=== PATIENT | female | born 1950 | race Caucasian/White ===

== ENCOUNTER 2021-12-30 02:45 | Observation (INO) ==
[2021-12-30] MEDS ORDERED: SODIUM CHLORIDE 0.9% 1000ML 1,000 ML IV ONE (03:05)
[2021-12-30] MEDS ORDERED: fentaNYL citrate 100 MCG/2 ML VIAL IV STA (03:15)
[2021-12-30] MEDS ORDERED: ACETAMINOPHEN 1,000 MG/100 ML VIAL IV STA (03:15)
[2021-12-30 03:45] LABS: INR 1.1 (0.9-1.1); Prothrombin Time 11.4 Seconds (9.0-12.0)
[2021-12-30 03:46] LABS: Basophils # (auto) 0.04 K/uL (0-0.2); Basophils % (auto) 0.3 %; Eosinophils # (auto) 0.22 K/uL (0-0.5); Eosinophils % (auto) 1.7 %; Hematocrit (blood only) 29.4 % (37-47); Immature Granulocytes # (auto) 0.21 K/uL (0.00-0.02); Immature Granulocytes % (auto) 1.6 %; Lymphocytes # (auto) 4.19 K/uL (1.2-3.4); Lymphocytes % (auto) 32.1 %; Mean Corpuscular Hemoglobin 30.1 pg (25-34); Mean Corpuscular Volume 88.6 fL (80-100); Mean Platelet Volume 8.8 fL (7.4-10.4); Monocytes # (auto) 1.28 K/uL (0.11-0.59); Monocytes % (auto) 9.8 %; Neutrophils # (auto) 7.13 K/uL (1.4-6.5); Neutrophils % (auto) 54.5 %; Nucleated RBC # (auto) 0.07 K/uL (0-0); Nucleated RBC % (auto) 0.5 %; Platelet Count 637 K/uL (130-400); RDW Coefficient of Variation 14.2 % (11.5-14.5); RDW Standard Deviation 46.2 fL (36.4-46.3); Red Blood Count 3.32 M/uL (4.2-5.4); White Blood Count 13.07 K/uL (4.8-10.8)
[2021-12-30 03:55] LABS: Troponin I High Sensitivity 9.1 pg/ml (0-14)
[2021-12-30 03:58] LABS: Alanine Aminotransferase 11 U/L (7-52); Albumin Globulin Ratio 0.8 (0.9-2); Albumin Level 3.1 gm/dl (3.4-5.0); Alkaline Phosphatase 123 U/L (34-104); Anion Gap 9 (3-11); Aspartate Aminotransferase 15 U/L (13-39); BUN Creatinine Ratio 16.4 (10-20); Bilirubin,Total 0.2 mg/dl (0.2-1.0); Blood Urea Nitrogen 18 mg/dl (6-23); Calcium 9.1 mg/dl (8.5-10.1); Carbon Dioxide 18 mmol/L (21-32); Chloride 108 mmol/L (98-107); Est GFR (African American) 58.9 ml/min; Est GFR (Non-African American) 50.8 ml/min; Globulin 4.1 gm/dl (2.5-4.0); Glucose 204 mg/dl (70-99(Fasting)); Magnesium 1.3 mg/dl (1.7-2.4); Sodium 135 mmol/L (136-145); Total Protein 7.2 gm/dl (6.0-8.3)
[2021-12-30] MEDS ORDERED: VANCOMYCIN HCL 1,500 MG in SODIUM CHLORIDE 0.9% 500 ML IV ONE (04:04)
[2021-12-30] MEDS ORDERED: VANCOMYCIN CONSULT ACTIVE PRN (04:04)
--- NOTE | 2021-12-30 04:40 | Emergency Department Note ---
History of Present Illness General Chief complaint: Wound Stated complaint: s/p Excision of buttock lesion-painful w/ drainage Time Seen by Provider: 12/30/21 02:48 Source: patient and EMS Mode of arrival: EMS Limitations: altered mental status History of Present Illness Provider complaint: Wound left buttock Maximum Pain Intensity: 5 Treatments prior to arrival: none This is a 71-year-old female presents emerge department via EMS due to "feeling ill" as well as a recent excision of a lesion on her left buttock now with increased pain and drainage. EMS states patient has been a poor historian, does live alone. She was supposed to be taking antibiotics since her incision however has not. Patient states her niece never picked them up for her. She states she has not had an appetite and felt increasingly weak. She denies fevers or chills. She states she does have pain in the area of the incision and throughout her left buttock. She denies change in urine or stools. Patient states she has not changed the dressing to that area since it was done on Fri. Patient cannot recall her past medical history or her medications. She did know that she was a diabetic. Pt seen during a time of high acuity and national emergency pandemic while wearing PPE. Home Medications Medication Instructions Recorded Confirmed Type amitriptyline 50 mg tablet 50 mg PO HS 12/30/21 12/30/21 History aspirin 81 mg tablet,delayed 81 mg PO DAILY 12/30/21 12/30/21 History release atorvastatin 40 mg tablet 40 mg PO HS 12/30/21 12/30/21 History cholestyramine (with sugar) 4 gram 4 g PO BID 12/30/21 12/30/21 History oral powder clindamycin HCl 300 mg capsule 300 mg PO Q6H 12/30/21 12/30/21 History dapagliflozin 10 mg tablet 10 mg PO DAILY 12/30/21 12/30/21 History (Farxiga) hydralazine 25 mg tablet 25 mg PO TID 12/30/21 12/30/21 History insulin aspart U-100 100 unit/mL 11 unit SUBCUT TIDM 12/30/21 12/30/21 History subcutaneous solution ketoconazole 2 % topical cream 1 applic TOPICAL BID 12/30/21 12/30/21 History memantine 5 mg tablet 5 mg PO QAM 12/30/21 12/30/21 History nystatin 100,000 unit/gram topical 1 applic TOPICAL BID PRN 12/30/21 12/30/21 History powder omeprazole 20 mg capsule,delayed 20 mg PO DAILY 12/30/21 12/30/21 History release Allergies Allergy/AdvReac Type Severity Reaction Status Date / Time amlodipine Allergy Severe SHORT OF Verified 12/30/21 03:06 BREATH adhesive Allergy Intermediate ITCHY RASH Verified 12/30/21 03:06 buspirone [From BuSpar] Allergy Unknown CAN'T Verified 12/30/21 03:06 REMEMBER duloxetine [From Cymbalta] Allergy Unknown CAN'T Verified 12/30/21 03:06 REMEMBER Penicillins AdvReac Intermediate Vomiting Verified 12/30/21 03:06 Past Med/Surg History Medical History (Updated 01/01/22 @ 23:42 by Akosua White DO) Depression Diabetes GERD (gastroesophageal reflux disease) Hypertension Hypothyroidism Memory deficit Surgical History History of hysterectomy Social History Smoking Status: Current every day smoker Cigarettes Per Day: 20; Hx Alcohol Use: No Hx Substance Use: No Preferred Language: Italian Communication Ability: Effective 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 Beliefs That Will Affect Care: None marital status: Current Living Situation: Alone Other Information That Helps Us Care for You: No Feels Safe at Home: Yes Assistive Devices: Walker Review of Systems A total of 10 systems reviewed and were otherwise negative All systems reviewed & are unremarkable except as noted in HPI & below Physical Exam Vital Signs Vital Signs - 24 hr 12/30/21 02:53 12/30/21 03:05 12/30/21 03:42 Temperature 36.5 C Temperature Source Oral Pulse Rate 74 74 Pulse Rate [Left Finger] 68 Respiratory Rate 20 20 20 Respiratory Effort / Characteristics Non-Labored Spontaneous Non-Labored Spontaneous Non-Labored Spontaneous Respiratory Depth Normal Normal Blood Pressure 178/102 H Blood Pressure [Left Arm] 178/82 H Blood Pressure Mean 127 Blood Pressure Mean [Left Arm] 114 Blood Pressure Position [Left Arm] Pulse Oximetry 98 99 99 Oxygen Delivery Method Room Air Room Air Room Air Sepsis Recent Fever Within 48 Hours No Sepsis New/Unexplained Change in Mental Status No Sepsis Action Taken by Nursing No Action Required 12/30/21 05:01 12/30/21 05:12 12/30/21 05:48 Temperature Temperature Source Pulse Rate Pulse Rate [Left Finger] 86 73 Respiratory Rate 20 20 20 Respiratory Effort / Characteristics Non-Labored Spontaneous Non-Labored Spontaneous Respiratory Depth Normal Normal Blood Pressure Blood Pressure [Left Arm] 178/82 H 175/82 H Blood Pressure Mean Blood Pressure Mean [Left Arm] 114 113 Blood Pressure Position [Left Arm] Lying Pulse Oximetry 98 98 98 Oxygen Delivery Method Room Air Room Air Room Air Sepsis Recent Fever Within 48 Hours Sepsis New/Unexplained Change in Mental Status Sepsis Action Taken by Nursing GENERAL: alert, unwell appearing, well nourished, no distress, non-toxic, laying right lateral recumbent EYE EXAM: normal conjunctiva, PERRL and EOM's grossly intact OROPHARYNX: no exudate, no erythema, lips, buccal mucosa, and tongue normal and mucous membranes are moist NECK: supple, no nuchal rigidity, no adenopathy, non-tender LUNGS: Clear to auscultation. Normal chest wall mechanics, no w/r/r HEART: no murmurs, S1 normal and S2 normal ABDOMEN: abdomen soft, non-tender, normo-active bowel sounds, no masses, no rebound or guarding. BUTTOCK: Small incision noted to the inferolateral aspect of the left buttock with copious drainage noted from the wound as well as on the dressing that was still in place, no surrounding erythema, tenderness with any palpation, culture obtained, no apparent extension into the perineum BACK: Back is symmetrical on inspection and there is no deformity, no midline tenderness, no CVA tenderness. SKIN: no rashes and no bruising UPPER EXTREMITIES: upper extremities are grossly normal. FROM, nml pulses b/l. LOWER EXTREMITIES: No pitting edema. FROM, nml pulses b/l. NEURO EXAM: Normal sensorium however difficulty remembering details of recent events, cranial nerves II-XII grossly intact, normal speech, no gross weakness of arms, no gross weakness of legs. Gross sensation intact. Course Course 0711: Lengthy discussion with the patient's niece, Jyoti, who lives in the same apartment complex with her in [place]. She confirms patient does have a history of dementia but does live alone. She states she was admitted to [facility] for the procedure to remove an abscess on her buttock. She states she was discharged on . She states since that time she has become increasingly confused. She states because none of them have a car they were unable to go pickling grader a prescription for clindamycin she was supposed to be taking at discharge. She states to her knowledge patient would want to be a full code. He does not know of any other advanced directives. Her number is [phone]. Administered Medications Acetaminophen (Acetaminophen 325 Mg Tab) 650 mg PO Q4H PRN PRN Reason: pain/fever Stop: 01/29/22 09:25 Last Admin: 12/31/21 05:23 Dose: 650 mg Documented by: [id number] Admin: 12/30/21 19:43 Dose: 650 mg Documented by: [id number] Amitriptyline HCl (Amitriptyline Hcl 50 Mg Tab) 50 mg PO [facility] Stop: 01/29/22 20:59 Last Admin: 01/01/22 20:48 Dose: 50 mg Documented by: [id number] Admin: 12/31/21 20:48 Dose: 50 mg Documented by: [id number] Admin: 12/30/21 19:42 Dose: 50 mg Documented by: [id number] Aspirin (Aspirin 81 Mg Ectab) 81 mg PO DAILY [facility] Stop: 01/29/22 09:25 Last Admin: 01/01/22 08:49 Dose: 81 mg Documented by: [id number] Admin: 12/31/21 08:24 Dose: 81 mg Documented by: [id number] Admin: 12/30/21 11:10 Dose: 81 mg Documented by: [id number] Atorvastatin Calcium (Atorvastatin 40 Mg Tab) 40 mg PO [facility] Stop: 01/29/22 20:59 Last Admin: 01/01/22 20:48 Dose: 40 mg Documented by: [id number] Admin: 12/31/21 20:48 Dose: 40 mg Documented by: [id number] Admin: 12/30/21 19:42 Dose: 40 mg Documented by: [id number] Cholestyramine Resin (Cholestyramine Light 4 Gm Pkt) 4 gm PO BID [facility] Stop: 01/29/22 09:25 Last Admin: 01/01/22 20:48 Dose: 4 gm Documented by: [id number] Admin: 01/01/22 08:49 Dose: Not Given Documented by: [id number] Admin: 12/31/21 20:48 Dose: 4 gm Documented by: [id number] Admin: 12/31/21 08:24 Dose: 4 gm Documented by: [id number] Admin: 12/30/21 19:43 Dose: 4 gm Documented by: [id number] Admin: 12/30/21 11:11 Dose: 4 gm Documented by: [id number] Enoxaparin Sodium (Enoxaparin Inj 40 Mg/0.4 Ml Syr) 40 mg SQ Q24H [facility] Stop: 01/30/22 08:59 Last Admin: 01/01/22 08:49 Dose: 40 mg Documented by: [id number] Admin: 12/31/21 08:25 Dose: 40 mg Documented by: [id number] Hydralazine HCl (Hydralazine Hcl 25 Mg Tab) 25 mg PO TID [facility] Stop: 01/29/22 09:25 Last Admin: 01/01/22 20:48 Dose: 25 mg Documented by: [id number] Admin: 01/01/22 14:46 Dose: 25 mg Documented by: [id number] Admin: 01/01/22 08:49 Dose: 25 mg Documented by: [id number] Admin: 12/31/21 20:48 Dose: 25 mg Documented by: [id number] Admin: 12/31/21 13:20 Dose: 25 mg Documented by: [id number] Admin: 12/31/21 08:24 Dose: 25 mg Documented by: [id number] Admin: 12/30/21 19:42 Dose: 25 mg Documented by: [id number] Admin: 12/30/21 14:20 Dose: 25 mg Documented by: [id number] Admin: 12/30/21 11:11 Dose: 25 mg Documented by: [id number] Piperacillin Sod/Tazobactam (Sod 4.5 gm/ Dextrose) 120 mls @ 30 mls/hr IV Q8H [facility]; Protocol Stop: 01/06/22 15:59 Last Infusion: 01/01/22 22:14 Dose: 0 mls/hr Documented by: [id number] Admin: 01/01/22 16:12 Dose: 30 mls/hr Documented by: [id number] Infusion: 01/01/22 13:07 Dose: 0 mls/hr Documented by: [id number] Admin: 01/01/22 08:49 Dose: 30 mls/hr Documented by: [id number] Infusion: 01/01/22 03:43 Dose: 0 mls/hr Documented by: [id number] Admin: 12/31/21 23:42 Dose: 30 mls/hr Documented by: [id number] Infusion: 12/31/21 20:49 Dose: 0 mls/hr Documented by: [id number] Admin: 12/31/21 16:22 Dose: 30 mls/hr Documented by: [id number] Infusion: 12/31/21 12:43 Dose: 0 mls/hr Documented by: [id number] Admin: 12/31/21 08:14 Dose: 30 mls/hr Documented by: [id number] Infusion: 12/31/21 05:22 Dose: 0 mls/hr Documented by: [id number] Admin: 12/31/21 00:49 Dose: 30 mls/hr Documented by: [id number] Infusion: 12/30/21 23:17 Dose: 0 mls/hr Documented by: [id number] Admin: 12/30/21 17:19 Dose: 30 mls/hr Documented by: [id number] Vancomycin HCl 1,000 mg/ (Sodium Chloride) 270 mls @ 200 mls/hr IV Q18H [facility] Stop: 01/06/22 15:59 Last Admin: 01/01/22 22:29 Dose: 200 mls/hr Documented by: [id number] Infusion: 01/01/22 06:14 Dose: 0 mls/hr Documented by: [id number] Admin: 01/01/22 04:50 Dose: 200 mls/hr Documented by: [id number] Infusion: 12/31/21 14:52 Dose: 0 mls/hr Documented by: [id number] Admin: 12/31/21 12:42 Dose: 200 mls/hr Documented by: [id number] Infusion: 12/30/21 19:36 Dose: 0 mls/hr Documented by: [id number] Admin: 12/30/21 17:19 Dose: 200 mls/hr Documented by: [id number] Insulin Aspart (Insulin Aspart Per Unit) 0 units SC ACHS [facility] Stop: 01/31/22 05:59 Last Admin: 01/01/22 20:59 Dose: 4 units Documented by: [id number] Cosigned by: [id number] Admin: 01/01/22 18:31 Dose: 6 units Documented by: [id number] Cosigned by: [id number] Insulin Glargine (Insulin Glargine Solostar 100 Units/Ml 3 Ml Pen) 15 units SQ HS [facility] Stop: 01/30/22 20:59 Last Admin: 01/01/22 20:50 Dose: 15 units Documented by: [id number] Cosigned by: [id number] Admin: 12/31/21 20:51 Dose: 15 units Documented by: [id number] Cosigned by: [id number] Memantine (Memantine Hcl 5 Mg Tab) 5 mg PO QAM [facility] Stop: 01/29/22 09:25 Last Admin: 01/01/22 08:49 Dose: 5 mg Documented by: [id number] Admin: 12/31/21 08:24 Dose: 5 mg Documented by: [id number] Admin: 12/30/21 11:11 Dose: 5 mg Documented by: [id number] Discontinued Medications Fentanyl Citrate (Fentanyl Citrate 100 Mcg/2 Ml Vial) 50 mcg IV NOW STA Stop: 12/30/21 03:16 Last Admin: 12/30/21 03:32 Dose: 50 mcg Documented by: [id number] Sodium Chloride (Nss 1000ml) 1,000 mls @ 999 mls/hr IV .Q1H1M ONE Stop: 12/30/21 04:05 Last Infusion: 12/30/21 05:19 Dose: 0 mls/hr Documented by: [id number] Admin: 12/30/21 03:32 Dose: 999 mls/hr Documented by: [id number] Acetaminophen (Ofirmev) 1,000 mg in 100 mls @ 400 mls/hr IV NOW STA Stop: 12/30/21 03:29 Last Infusion: 12/30/21 05:17 Dose: 0 mls/hr Documented by: [id number] Admin: 12/30/21 03:32 Dose: 400 mls/hr Documented by: [id number] Vancomycin HCl 1,500 mg/ (Sodium Chloride) 530 mls @ 200 mls/hr IV NOW ONE Stop: 12/30/21 06:42 Last Infusion: 12/30/21 08:23 Dose: 0 mls/hr Documented by: [id number] Admin: 12/30/21 05:44 Dose: 200 mls/hr Documented by: [id number] Magnesium Sulfate/Dextrose (Magnesium Sulfate / D5w) 1 gm in 100 mls @ 100 mls/hr IV Q1H [facility] Stop: 12/30/21 06:21 Last Infusion: 12/30/21 07:39 Dose: 0 mls/hr Documented by: [id number] Admin: 12/30/21 06:39 Dose: 100 mls/hr Documented by: [id number] Infusion: 12/30/21 06:38 Dose: 100 mls/hr Documented by: [id number] Admin: 12/30/21 05:38 Dose: 100 mls/hr Documented by: [id number] Cefepime HCl (Maxipime) 2,000 mg in 20 mls @ 5 mls/min IV NOW STA; Protocol Stop: 12/30/21 05:14 Last Admin: 12/30/21 05:43 Dose: 5 mls/min Documented by: [id number] Piperacillin Sod/Tazobactam (Sod 4.5 gm/ Dextrose) 120 mls @ 240 mls/hr IV ONE ONE; Protocol Stop: 12/30/21 10:29 Last Infusion: 12/30/21 11:52 Dose: 0 mls/hr Documented by: [id number] Admin: 12/30/21 11:11 Dose: 240 mls/hr Documented by: [id number] Magnesium Sulfate/Dextrose (Magnesium Sulfate / D5w) 1 gm in 100 mls @ 50 mls/hr IV Q2H [facility] Stop: 12/31/21 13:14 Last Infusion: 12/31/21 14:52 Dose: 0 mls/hr Documented by: [id number] Admin: 12/31/21 12:38 Dose: 50 mls/hr Documented by: [id number] Infusion: 12/31/21 12:27 Dose: 50 mls/hr Documented by: [id number] Admin: 12/31/21 10:27 Dose: 50 mls/hr Documented by: [id number] Infusion: 12/31/21 10:13 Dose: 50 mls/hr Documented by: [id number] Admin: 12/31/21 08:13 Dose: 50 mls/hr Documented by: [id number] Insulin Aspart (Insulin Aspart Per Unit) 0 units SC ACHS [facility] Stop: 01/29/22 11:29 Last Admin: 12/31/21 20:55 Dose: 3 units Documented by: [id number] Cosigned by: [id number] Admin: 12/31/21 17:52 Dose: 6 units Documented by: [id number] Cosigned by: [id number] Admin: 12/31/21 12:39 Dose: 7 units Documented by: [id number] Cosigned by: [id number] Admin: 12/31/21 08:23 Dose: 5 units Documented by: [id number] Cosigned by: [id number] Admin: 12/30/21 21:05 Dose: 2 units Documented by: [id number] Cosigned by: [id number] Admin: 12/30/21 17:55 Dose: 4 units Documented by: [id number] Cosigned by: [id number] Admin: 12/30/21 12:46 Dose: 5 units Documented by: [id number] Cosigned by: [id number] Insulin Aspart (Insulin Aspart Per Unit) 0 units SC Q6 [facility] Stop: 01/31/22 05:59 Last Admin: 01/01/22 06:13 Dose: 3 units Documented by: [id number] Cosigned by: [id number] Ioversol (Optiray 320 100ml) 95 ml IV ONCE ONE Stop: 12/30/21 05:28 Last Admin: 12/30/21 05:27 Dose: 95 ml Documented by: [id number] Miscellaneous (Patient's Height And/Or Weight Needed) 1 ea N/A Q2H [facility] Stop: 01/29/22 09:59 Last Admin: 12/30/21 11:53 Dose: Not Given Documented by: [id number] Admin: 12/30/21 11:53 Dose: Not Given Documented by: [id number] Admin: 12/30/21 11:09 Dose: 1 ea Documented by: [id number] Morphine Sulfate (Morphine Sulfate 4 Mg/Ml 1 Ml Carp\\Vial) 4 mg IV NOW STA Stop: 12/30/21 04:56 Last Admin: 12/30/21 05:02 Dose: 4 mg Documented by: [id number] Medical Decision Making Differential Diagnosis Differential Diagnosis includes but is not limited to dehydration, stroke, anemia, hypoglycemia, hyponatremia, hypernatremia, urinary tract infection, pneumonia, bronchitis, sepsis, gastroenteritis, additional abdominal pathology, metabolic abnormalities and infections. Medical Records Attestation: I reviewed the patient's medical records. Home Medications Current Medication List: was personally reviewed by me Laboratory Data Attestation: I reviewed the patient's lab results. Result diagrams: 01/01/22 07:34 01/01/22 07:34 Lab Results 12/30/21 12/30/21 12/30/21 Range/Units 03:00 03:00 03:00 WBC 13.07 H (4.8-10.8) K/uL RBC 3.32 L (4.2-5.4) M/uL Hgb 10.0 L (12.0-16.0) g/dL Hct 29.4 L (37-47) % MCV 88.6 (80-100) fL MCH 30.1 (25-34) pg MCHC 34.0 (32-36) g/dL RDW Std Deviation 46.2 (36.4-46.3) fL RDW Coeff of Julio 14.2 (11.5-14.5) % Plt Count 637 H (130-400) K/uL MPV 8.8 (7.4-10.4) fL Immature Gran % (Auto) 1.6 % Neut % (Auto) 54.5 % Lymph % (Auto) 32.1 % Otero % (Auto) 9.8 % Eos % (Auto) 1.7 % Baso % (Auto) 0.3 % Neut # (Auto) 7.13 H (1.4-6.5) K/uL Lymph # (Auto) 4.19 H (1.2-3.4) K/uL Otero # (Auto) 1.28 H (0.11-0.59) K/uL Eos # (Auto) 0.22 (0-0.5) K/uL Baso # (Auto) 0.04 (0-0.2) K/uL Immature Gran # (Auto) 0.21 H (0.00-0.02) K/uL Absolute Nucleated RBC 0.07 H (0-0) K/uL Nucleated RBC % (auto) 0.5 % PT (9.0-12.0) Seconds INR (0.9-1.1) Sodium 135 L (136-145) mmol/L Potassium 4.0 (3.5-5.1) mmol/L Chloride 108 H (98-107) mmol/L Carbon Dioxide 18 L (21-32) mmol/L Anion Gap 9 (3-11) BUN 18 (6-23) mg/dl Creatinine 1.10 (0.6-1.2) mg/dl Est Cr Clr Drug Dosing Not Reportable Est GFR ( Amer) 58.9 ml/min Est GFR (Non-Af Amer) 50.8 ml/min BUN/Creatinine Ratio 16.4 (10-20) Glucose 204 H (70-99(Fasting)) mg/dl Lactate (0.4-2.0) mmol/L Calcium 9.1 (8.5-10.1) mg/dl Magnesium 1.3 L (1.7-2.4) mg/dl Total Bilirubin 0.2 (0.2-1.0) mg/dl AST 15 (13-39) U/L ALT 11 (7-52) U/L Alkaline Phosphatase 123 H (34-104) U/L Troponin I High Sens 9.1 (0-14) pg/ml Total Protein 7.2 (6.0-8.3) gm/dl Albumin 3.1 L (3.4-5.0) gm/dl Globulin 4.1 H (2.5-4.0) gm/dl Albumin/Globulin Ratio 0.8 L (0.9-2) Procalcitonin 0.14 (0-0.5) ng/ml Urine Color Urine Appearance (Clear) Urine pH (4.5-7.5) Ur Specific Carson (1.000-1.030) Urine Protein (Negative) Urine Glucose (UA) (Negative) Urine Ketones (Negative) Urine Blood (Negative) Urine Nitrite (Negative) Urine Bilirubin (Negative) Urine Urobilinogen (Negative) Ur Leukocyte Esterase (Negative) Urine WBC (Auto) (0-5) /hpf Urine RBC (Auto) (0-4) /hpf U Hyaline Cast (Auto) (0-5) /lpf U Epithel Cells (Auto) (0-5) /lpf Urine Bacteria (Auto) (Negative) SARS-CoV-2, RNA, NAAT (NEGATIVE) 12/30/21 12/30/21 12/30/21 Range/Units 03:25 03:25 04:25 WBC (4.8-10.8) K/uL RBC (4.2-5.4) M/uL Hgb (12.0-16.0) g/dL Hct (37-47) % MCV (80-100) fL MCH (25-34) pg MCHC (32-36) g/dL RDW Std Deviation (36.4-46.3) fL RDW Coeff of Julio (11.5-14.5) % Plt Count (130-400) K/uL MPV (7.4-10.4) fL Immature Gran % (Auto) % Neut % (Auto) % Lymph % (Auto) % Otero % (Auto) % Eos % (Auto) % Baso % (Auto) % Neut # (Auto) (1.4-6.5) K/uL Lymph # (Auto) (1.2-3.4) K/uL Otero # (Auto) (0.11-0.59) K/uL Eos # (Auto) (0-0.5) K/uL Baso # (Auto) (0-0.2) K/uL Immature Gran # (Auto) (0.00-0.02) K/uL Absolute Nucleated RBC (0-0) K/uL Nucleated RBC % (auto) % PT 11.4 (9.0-12.0) Seconds INR 1.1 (0.9-1.1) Sodium (136-145) mmol/L Potassium (3.5-5.1) mmol/L Chloride (98-107) mmol/L Carbon Dioxide (21-32) mmol/L Anion Gap (3-11) BUN (6-23) mg/dl Creatinine (0.6-1.2) mg/dl Est Cr Clr Drug Dosing Est GFR ( Amer) ml/min Est GFR (Non-Af Amer) ml/min BUN/Creatinine Ratio (10-20) Glucose (70-99(Fasting)) mg/dl Lactate 1.1 (0.4-2.0) mmol/L Calcium (8.5-10.1) mg/dl Magnesium (1.7-2.4) mg/dl Total Bilirubin (0.2-1.0) mg/dl AST (13-39) U/L ALT (7-52) U/L Alkaline Phosphatase (34-104) U/L Troponin I High Sens (0-14) pg/ml Total Protein (6.0-8.3) gm/dl Albumin (3.4-5.0) gm/dl Globulin (2.5-4.0) gm/dl Albumin/Globulin Ratio (0.9-2) Procalcitonin (0-0.5) ng/ml Urine Color Urine Appearance (Clear) Urine pH (4.5-7.5) Ur Specific Carson (1.000-1.030) Urine Protein (Negative) Urine Glucose (UA) (Negative) Urine Ketones (Negative) Urine Blood (Negative) Urine Nitrite (Negative) Urine Bilirubin (Negative) Urine Urobilinogen (Negative) Ur Leukocyte Esterase (Negative) Urine WBC (Auto) (0-5) /hpf Urine RBC (Auto) (0-4) /hpf U Hyaline Cast (Auto) (0-5) /lpf U Epithel Cells (Auto) (0-5) /lpf Urine Bacteria (Auto) (Negative) SARS-CoV-2, RNA, NAAT NEGATIVE (NEGATIVE) 12/30/21 Range/Units 04:40 WBC (4.8-10.8) K/uL RBC (4.2-5.4) M/uL Hgb (12.0-16.0) g/dL Hct (37-47) % MCV (80-100) fL MCH (25-34) pg MCHC (32-36) g/dL RDW Std Deviation (36.4-46.3) fL RDW Coeff of Julio (11.5-14.5) % Plt Count (130-400) K/uL MPV (7.4-10.4) fL Immature Gran % (Auto) % Neut % (Auto) % Lymph % (Auto) % Otero % (Auto) % Eos % (Auto) % Baso % (Auto) % Neut # (Auto) (1.4-6.5) K/uL Lymph # (Auto) (1.2-3.4) K/uL Otero # (Auto) (0.11-0.59) K/uL Eos # (Auto) (0-0.5) K/uL Baso # (Auto) (0-0.2) K/uL Immature Gran # (Auto) (0.00-0.02) K/uL Absolute Nucleated RBC (0-0) K/uL Nucleated RBC % (auto) % PT (9.0-12.0) Seconds INR (0.9-1.1) Sodium (136-145) mmol/L Potassium (3.5-5.1) mmol/L Chloride (98-107) mmol/L Carbon Dioxide (21-32) mmol/L Anion Gap (3-11) BUN (6-23) mg/dl Creatinine (0.6-1.2) mg/dl Est Cr Clr Drug Dosing Est GFR ( Amer) ml/min Est GFR (Non-Af Amer) ml/min BUN/Creatinine Ratio (10-20) Glucose (70-99(Fasting)) mg/dl Lactate (0.4-2.0) mmol/L Calcium (8.5-10.1) mg/dl Magnesium (1.7-2.4) mg/dl Total Bilirubin (0.2-1.0) mg/dl AST (13-39) U/L ALT (7-52) U/L Alkaline Phosphatase (34-104) U/L Troponin I High Sens (0-14) pg/ml Total Protein (6.0-8.3) gm/dl Albumin (3.4-5.0) gm/dl Globulin (2.5-4.0) gm/dl Albumin/Globulin Ratio (0.9-2) Procalcitonin (0-0.5) ng/ml Urine Color Yellow Urine Appearance Cloudy A (Clear) Urine pH 5.0 (4.5-7.5) Ur Specific Carson 1.020 (1.000-1.030) Urine Protein 2+ H (Negative) Urine Glucose (UA) 1+ H (Negative) Urine Ketones Negative (Negative) Urine Blood Trace H (Negative) Urine Nitrite Negative (Negative) Urine Bilirubin Negative (Negative) Urine Urobilinogen Negative (Negative) Ur Leukocyte Esterase Negative (Negative) Urine WBC (Auto) 5-10 H (0-5) /hpf Urine RBC (Auto) 0-4 (0-4) /hpf U Hyaline Cast (Auto) 5-10 H (0-5) /lpf U Epithel Cells (Auto) >30 H (0-5) /lpf Urine Bacteria (Auto) Negative (Negative) SARS-CoV-2, RNA, NAAT (NEGATIVE) Imaging Data Radiologist's Impression: Pelvis CT 12/30/21 03:05 CT pelvis w/IV con only HISTORY: left buttock wound TECHNIQUE: Multiaxial CT images of the pelvis were performed following the intravenous administration of 95 cc of Optiray 320 and reformatted in the sagittal and coronal plane. COMPARISON STUDY: None. FINDINGS: There are 2 small skin ulcerations within the left inferior gluteal region measuring 8 and 5 mm. There is associated skin thickening and extensive subcutaneous infiltration/enhancement. There appear to be small multifocal areas of phlegmon/developing abscesses with the largest on image 233 measuring 3.5 x 1.7. However, no drainable fluid collections identified this time. No radiopaque foreign bodies. The bladder is unremarkable. Prior hysterectomy. The visualized loops of bowel show no wall thickening or obstruction. No bony destruction to suggest an osteomyelitis. IMPRESSION: There are 2 small skin ulcerations within the left inferior gluteal region with associated skin thickening and extensive subcutaneous infiltration/enhancement. This is consistent with a cellulitis. There appear to be small multifocal areas of phlegmon/developing abscesses as described above without drainable fluid collection at this time. ACT 112: Negative or not required by law. Electronically signed by: Les Freire M.D. 12/30/2021 7:[address] pelvis: Soft tissue swelling and severe inflammatory changes at left ischial anal fossa, perineum, buttocks region medially. Associated skin defects. Also associated prominent vasculature. Findings are compatible with cellulitis. No convincing evidence of drainable fluid collection. Degenerative changes of spine. Radiologist: Timoteo Andrade MD ECG Data Attestation: I personally reviewed and interpreted this ECG as follows: Indication: + weakness Rate (beats per minute): 72 Rhythm: + normal sinus ECG Intervals/blocks: + Normal QRS and + Normal QT ECG [place]: + Normal ECG ST segments: + Normal ST segments MDM Narrative An order was placed for continuous cardiac monitoring. The monitor shows a rate of _86_ with _normal sinus_ rhythm. This is a 71-year-old female presents emergency department with increased confusion, increased pain, and apparent wound from recent left buttock incision. Patient afebrile and hemodynamically stable. A septic work-up was started as a precaution as patient stated she was supposed to be taking antibiotics but was not. Limited additional information available as no family or friends present at bedside, patient confused, patient's procedure had not been done here. Eventually case management was able to determine that her procedure had been on through the [facility] system and were attempting to obtain records. We are also eventually able to speak with a niece who was able to provide some additional information. Case discussed with the hospitalist for additional evaluation and management. Patient was initially started on broad-spectrum antibiotics, and CT was also obtained to determine extension of apparent infection. No evidence of abscess or osteomyelitis. Patient found to be significantly hypomagnesemic, this was repleted through the IV while in the emergency department also. Impression & Plan AMS (altered mental status), Buttock wound, Cellulitis, Hyperglycemia due to diabetes mellitus, Hypomagnesemia Discharge Plan Visit Data Chief Complaint: Wound Stated Complaint: s/p Excision of buttock lesion-painful w/ drainage ED Provider: Akosua White Discharge Problem: AMS (altered mental status), Buttock wound, Cellulitis, Hyperglycemia due to diabetes mellitus, Hypomagnesemia Patient Disposition: Admitted As Inpatient Discharge Instructions Interventions: ED Discharge Assessment Last Done: 12/30/21 08:57 Discharge Problem: AMS (altered mental status) Qualifiers: Altered mental status type: unspecified Qualified Code(s): R41.82 - Altered mental status, unspecified Buttock wound Qualifiers: Encounter type: initial encounter Laterality: left Qualified Code(s): S31.829A - Unspecified open wound of left buttock, initial encounter Cellulitis Qualifiers: Site of cellulitis: buttock Qualified Code(s): L03.317 - Cellulitis of buttock
[2021-12-30 04:51] LABS: Appearance Urine Cloudy (Clear); Bacteria Urine Automated Negative (Negative); Bilirubin Urine Negative (Negative); Blood Urine Trace (Negative); Color Urine Yellow; Epithelial Cell Urine Auto >30 /lpf (0-5); Glucose Urine UA 1+ (Negative); Ketones Urine Negative (Negative); Leukocyte Esterase Urine Negative (Negative); Nitrite Urine Negative (Negative); Protein Urine 2+ (Negative); RBC Urine Automated 0-4 /hpf (0-4); Urobilinogen Urine Negative (Negative)
[2021-12-30] MEDS ORDERED: MoRPHine SULFATE 4 MG/ML 1 ML CARP\\VIAL IV STA (04:55)
[2021-12-30] MEDS ORDERED: CEFEPIME 2,000 MG/20 ML VIAL IV STA (05:11)
[2021-12-30] MEDS ORDERED: OPTIRAY 320 100ml IV ONE (05:27)
[2021-12-30] MEDS: MAGNESIUM SULFATE / D5W 1 GM/100 ML BAG IV SCH ×2 (05:38→06:39)
--- NOTE | 2021-12-30 07:31 | CT Scan Report ---
CT pelvis w/IV con only HISTORY: left buttock wound TECHNIQUE: Multiaxial CT images of the pelvis were performed following the intravenous administration of 95 cc of Optiray 320 and reformatted in the sagittal and coronal plane. COMPARISON STUDY: None. FINDINGS: There are 2 small skin ulcerations within the left inferior gluteal region measuring 8 and 5 mm. There is associated skin thickening and extensive subcutaneous infiltration/enhancement. There appear to be small multifocal areas of phlegmon/developing abscesses with the largest on image 233 me asuring 3.5 x 1.7. However, no drainable fluid collections identified this time. No radiopaque foreig n bodies. The bladder is unremarkable. Prior hysterectomy. The visualized loops of bowel show no wall thickening or obstruction. No bony destruction to suggest an osteomyelitis. IMPRESSION: There are 2 small skin ulcerations within the left inferior gluteal region with associated skin thick ening and extensive subcutaneous infiltration/enhancement. This is consistent with a cellulitis. Ther e appear to be small multifocal areas of phlegmon/developing abscesses as described above without nilsa inable fluid collection at this time. ACT 112: Negative or not required by law. Electronically signed by: Les Freire M.D. 12/30/2021 7:29 AM
--- NOTE | 2021-12-30 07:55 | Surgery Consultation ---
Date of Consultation December 30, 2021 Assessment & Plan (1) Cellulitis of buttock, left: Patient is being admitted to the hospital on the medical service we recommend proceeding as follows: Follow serial labs Broad-spectrum antibiotics have been initiated in the form of cefepime and vancomycin. I would recommend continue these antibiotics and follow culture results that have been sent at which time antibiotics can be further tailored based on these results. (Blood cultures as well as a wound culture have been obtained) I discussed with the patient at the present time it appears that she has a cellulitis of her buttocks near where her previous procedure was performed. At the present time there is no drainable abscess but did discuss with the patient that we will need to monitor her for an abscess that develops and if this occurs an incision and drainage may be required at that time The primary service has requested records from patient's recent procedure to be obtained these have not yet been retrieved We will continue to follow along while patient is hospitalized As above. Nothing to drain at this time according to imaging. I suspect she will develop an abscess which will need drained in the next 48 hours. Admission IV antibiotics and we will follow along. History of Present Illness Reason for Consultation: Cellulitis of buttocks History of Present Illness This is a 71-year-old female who presented to [facility] urgency department secondary to pain in her buttocks for several days. The patient is unclear of the entire details of her medical history but she reports approximately 1 week ago she underwent an incision of a "lesion" on the left side of her buttocks. She notes that approximately 24 hours after this procedure she noted some pain and initially attributed this to postsurgical pain but has gotten progressively worse since that time. She has noted some purulent type drainage draining from her incision. He also reports that she was supposed to be taking antibiotics but has been unable to pick them up and therefore was not taking them. She denies any fevers, shakes, chills. She denies any dy suria. She does note a poor appetite. He does not report any modifying factors to her buttock pain other than it hurts with pressure. It is nowhere the mention that the patient reports that she is diabetic. Since arrival to the emergency department the patient has had labs and imaging which I independently reviewed. Chest x-ray did not show any evidence of pleural effusion or pneumonia. CT scan of the pelvis showed 2 small skin ulcerations in the left inferior gluteal region with some skin thickening and subcutaneous infiltration. This was felt to represent cellulitis. There are some small multifocal areas of phlegmon concerning for developing process however no drainable fluid collection was noted. CBC revealed white blood cell count was 13.0. Hemoglobin and hematocrit were 10.0 and 29.4. Platelet count was 637,000. Chemistry profile showed sodium was 135 with a normal potassium. Her BUN and creatinine were normal. Lactic acid level was normal. A procalcitonin level was not elevated. Urinalysis was not indicative of infection and a COVID test was negative. At the time of my interview the patient was in no distress. Allergies Allergy/AdvReac Type Severity Reaction Status Date / Time amlodipine Allergy Severe SHORT OF Verified 12/30/21 03:06 BREATH adhesive Allergy Intermediate ITCHY RASH Verified 12/30/21 03:06 buspirone [From BuSpar] Allergy Unknown CAN'T Verified 12/30/21 03:06 REMEMBER duloxetine [From Cymbalta] Allergy Unknown CAN'T Verified 12/30/21 03:06 REMEMBER Penicillins AdvReac Intermediate Vomiting Verified 12/30/21 03:06 Home Medications Medication Instructions Recorded Confirmed Type amitriptyline 50 mg tablet 50 mg PO HS 12/30/21 12/30/21 History aspirin 81 mg tablet,delayed 81 mg PO DAILY 12/30/21 12/30/21 History release atorvastatin 40 mg tablet 40 mg PO HS 12/30/21 12/30/21 History cholestyramine (with sugar) 4 gram 4 g PO BID 12/30/21 12/30/21 History oral powder clindamycin HCl 300 mg capsule 300 mg PO Q6H 12/30/21 12/30/21 History dapagliflozin 10 mg tablet 10 mg PO DAILY 12/30/21 12/30/21 History (Farxiga) hydralazine 25 mg tablet 25 mg PO TID 12/30/21 12/30/21 History insulin aspart U-100 100 unit/mL 11 unit SUBCUT TIDM 12/30/21 12/30/21 History subcutaneous solution ketoconazole 2 % topical cream 1 applic TOPICAL BID 12/30/21 12/30/21 History memantine 5 mg tablet 5 mg PO QAM 12/30/21 12/30/21 History nystatin 100,000 unit/gram topical 1 applic TOPICAL BID PRN 12/30/21 12/30/21 History powder omeprazole 20 mg capsule,delayed 20 mg PO DAILY 12/30/21 12/30/21 History release Patient History Social History Smoking Status: Current every day smoker Feels Safe at Home: Yes Review of Systems Constitutional: + fatigue; no fever and no chills Eyes: no eye pain Ear, Nose, Mouth, Throat: no ear pain Respiratory: no cough and no dyspnea Cardiovascular: no chest pain Gastrointestinal: no abdominal pain, no nausea and no vomiting Genitourinary: no dysuria Musculoskeletal: no back pain Integumentary: no rash Neurologic: no localized weakness Physical Exam Physical Exam: Patient's buttock was examined and on the left aspect there is a small incision on the inferior lateral aspect with some drainage noted the drainage is yellowish in color. It is not malodorous. There is minimal to no surrounding erythema. The area is indurated and is tender to palpation but was not overtly warm. I did not appreciate any crepitus in the soft tissue. Constitutional: well developed and well nourished; no acute distress Eyes: no conjunctival abnormality ENMT: Ears: no hearing impairment and no external ear abnormality Mouth: no oropharynx abnormality Neck: trachea midline Respiratory: normal respiratory effort; no respiratory distress and no labored breathing Cardiovascular: Rate/Rhythm: regular rate and regular rhythm Gastrointestinal (Abdomen): Soft and nontender Musculoskeletal: No calf tenderness Skin: no rashes Neurologic: moves all extremities Psychiatric: A+Ox3, euthymic affect Results & Data ([facility]) Vital Signs (Past 12 Hours) Vital Signs Temp Pulse Pulse Resp BP BP Pulse Ox 12/30/21 05:48 73 20 175/82 H 98 12/30/21 05:12 20 98 12/30/21 05:01 86 20 178/82 H 98 12/30/21 03:42 68 20 178/82 H 99 12/30/21 03:05 74 20 99 12/30/21 02:53 36.5 C 74 20 178/102 H 98 PG Care Time/CCT Total # of Minutes Spent Total Time Spent with Patient: Total time spent is greater than 50% in coordination of care (as documented) at patient's floor/unit and/or counseling patient: Coding Level of Care Code 80236 Inpt Consult Level 4 Diagnoses Cellulitis of buttock, left L03.317
--- NOTE | 2021-12-30 09:02 | XRay Report ---
XR chest 1V portable HISTORY: SEPSIS COMPARISON: Chest 11/14/2014. FINDINGS: No pneumothorax. No pleural effusions. The lungs are clear. No evidence for pulmonary edema . The heart remains mildly enlarged. IMPRESSION: No significant change compared to the prior study. No acute process. ACT 112: Negative or not required by law. Electronically signed by: Les Freire M.D. 12/30/2021 9:00 AM
[2021-12-30] MEDS ORDERED: GLUCAGON FOR INJ 1 MG VIAL SQ PRN (09:26)
[2021-12-30] MEDS ORDERED: ONDANSETRON INJ 2 MG/ML 2 ML VIAL IV PRN (09:26)
[2021-12-30] MEDS ORDERED: PIPERACILL/TAZOBAC CONSULT ACTIVE PRN (09:26)
[2021-12-30] MEDS ORDERED: GLUCOSE 40% GEL 15 GM TUBE PO PRN (09:26)
[2021-12-30] MEDS ORDERED: DEXTROSE 50% 50 ML SYRINGE IV PRN (09:26)
[2021-12-30] MEDS ORDERED: CARBOHYDRATES FOR HYPOGLYCEMIA PO PRN (09:26)
[2021-12-30] MEDS ORDERED: GLUCOSE 10 TABS/TUBE PO PRN (09:26)
[2021-12-30] MEDS ORDERED: PIPERACILLIN/TAZOBACTAM 4.5 GM in DEXTROSE 5% 100 ML IV ONE (10:00)
--- NOTE | 2021-12-30 10:37 | Electrocardiogram Report ---
Test Reason : Blood Pressure : / mmHG Vent. Rate : 072 BPM Atrial Rate : 072 BPM P-R Int : 194 ms QRS Dur : 086 ms QT Int : 426 ms P-R-T Axes : 040 069 069 degrees QTc Int : 466 ms Normal sinus rhythm Normal ECG When compared with ECG of 14-NOV-2014 14:07, No significant change was found Confirmed by Urbano Rodgers ([id number]) on 12/30/2021 10:37:15 AM Referred By: REFERRED SELF Confirmed By:Urbano Rodgers
[2021-12-30] MEDS: Patient's HEIGHT &/or WEIGHT Needed SCH ×2 (11:09→11:53)
[2021-12-30] MEDS: ASPIRIN 81 MG ECTAB PO SCH (11:10)
[2021-12-30] MEDS: MEMANTINE HCL 5 MG TAB PO SCH (11:11)
[2021-12-30] MEDS: hydrALAZINE HCL 25 MG TAB PO SCH ×3 (11:11→19:42)
[2021-12-30] MEDS: CHOLESTYRAMINE LIGHT 4 GM PKT PO SCH ×2 (11:11→19:43)
[2021-12-30] MEDS: INSULIN ASPART PER UNIT SC SCH ×3 (12:46→21:05)
--- NOTE | 2021-12-30 13:21 | History & Physical Report ---
Date of Service December 30, 2021 Assessment & Plan (1) Cellulitis of buttock, left: Plan: At the site of her prior I&D at [place]. - Continue vancomycin and Zosyn - Follow wound and blood cultures - Gen surgery following - Will likely need repeat I&D in next 24 - 48 hours. (2) Diabetes: Plan: No known A1c. - Hold home dapagliflozin - Sliding scale insulin (3) Memory deficit: Plan: Per niece, patient has some sort of dementia. She cannot really recall almost any recent events. Unclear how from baseline she is. - Continue home memantine (4) Hypertension: Plan: BP in the ER was 175/100. - Continue home hydralazine (5) Hypothyroidism: Plan: In charts, but not on thyroid replacement. - Check TSH/FT4 (6) GERD (gastroesophageal reflux disease): Plan: - Continue home PPI (7) Hyperlipidemia: Plan: - Continue home statin (8) Depression: Plan: - Continue home amitriptyline (9) DVT prophylaxis: Plan: Lovenox 40 mg SQ daily Admission and Anticipated Discharge Date Admission Date: December 30, 2021 History of Present Illness Primary Care Provider: NO PCP 71yo F w/ hx of DM, HTN who presents with left buttock cellulitis. The patient was brought to the ER by EMS after her family felt she was lethargic at home. The patient is a poor historian, and cannot really give any meaningful medical history or even a recitation of recent events. Per her niece, Jyoti, the patient had been having some boils or abscesses on her buttock which they were treating with topical Neosporin and Sitz baths. However, the abscesses became worse, and she was hospitalized at [facility] for what sounds like an I&D on 12/27. She was discharged to home; however, the family has no access to a vehicle, and no one picked up the antibiotic that was prescribed (clindamycin). Over the course of the last few days, she has had increased pain in the left buttock region and been more lethargic at home. Allergies Allergy/AdvReac Type Severity Reaction Status Date / Time amlodipine Allergy Severe SHORT OF Verified 12/30/21 03:06 BREATH adhesive Allergy Intermediate ITCHY RASH Verified 12/30/21 03:06 buspirone [From BuSpar] Allergy Unknown CAN'T Verified 12/30/21 03:06 REMEMBER duloxetine [From Cymbalta] Allergy Unknown CAN'T Verified 12/30/21 03:06 REMEMBER Penicillins AdvReac Intermediate Vomiting Verified 12/30/21 03:06 Home Medications Medication Instructions Recorded Confirmed Type amitriptyline 50 mg tablet 50 mg PO HS 12/30/21 12/30/21 History aspirin 81 mg tablet,delayed 81 mg PO DAILY 12/30/21 12/30/21 History release atorvastatin 40 mg tablet 40 mg PO HS 12/30/21 12/30/21 History cholestyramine (with sugar) 4 gram 4 g PO BID 12/30/21 12/30/21 History oral powder clindamycin HCl 300 mg capsule 300 mg PO Q6H 12/30/21 12/30/21 History dapagliflozin 10 mg tablet 10 mg PO DAILY 12/30/21 12/30/21 History (Farxiga) hydralazine 25 mg tablet 25 mg PO TID 12/30/21 12/30/21 History insulin aspart U-100 100 unit/mL 11 unit SUBCUT TIDM 12/30/21 12/30/21 History subcutaneous solution ketoconazole 2 % topical cream 1 applic TOPICAL BID 12/30/21 12/30/21 History memantine 5 mg tablet 5 mg PO QAM 12/30/21 12/30/21 History nystatin 100,000 unit/gram topical 1 applic TOPICAL BID PRN 12/30/21 12/30/21 History powder omeprazole 20 mg capsule,delayed 20 mg PO DAILY 12/30/21 12/30/21 History release Past Med/Surg History Medical History (Updated 12/30/21 @ 13:20 by Beck Wells MD) Depression Diabetes GERD (gastroesophageal reflux disease) Hypertension Hypothyroidism Memory deficit Surgical History History of hysterectomy Social History Smoking Status: Current every day smoker Cigarettes Per Day: 20; Hx Alcohol Use: No Hx Substance Use: No Preferred Language: [place] Communication Ability: Effective Can Pusher Required: No Beliefs That Will Affect Care: None Current Living Situation: Alone Other Information That Helps Us Care for You: No Feels Safe at Home: Yes Assistive Devices: Glasses and Walker Review of Systems Review of Systems: All systems reviewed & are unremarkable except as noted in HPI & below Physical Exam Constitutional: WD/WN, vitals as above + acute distress, + ill appearing and + disheveled Eyes: EOM intact bilaterally; no conjunctival abnormality ENMT: external ear and nose normal, oropharynx normal Neck: trachea midline, no thyromegaly normal visual inspection Respiratory: normal respiratory effort, lungs clear to auscultation no respiratory distress Cardiovascular: RRR, no murmur, no edema Gastrointestinal (Abdomen): Inspection/Auscultation: abdomen normal to inspection; abdomen not distended Musculoskeletal: no cyanosis or clubbing, extremities motor strength 5/5 Skin: no rashes, warm and dry + wound (Two surgical incisions on left buttock with surrounding erythema) Neurologic: moves all extremities and awake Psychiatric: Orientation: alert, oriented to person and cooperative Results & Data Results & Data ([facility]) Vital Signs (Past 12 Hours) Vital Signs Temp Pulse Pulse Resp BP BP Pulse Ox 12/30/21 10:59 36.8 C 75 163/77 H 98 12/30/21 08:00 160/76 H 100 12/30/21 07:42 157/89 H 12/30/21 07:36 100 12/30/21 07:30 99 12/30/21 07:00 99 12/30/21 06:30 98 12/30/21 06:00 98 12/30/21 05:48 73 20 175/82 H 98 12/30/21 05:44 97 12/30/21 05:38 175/82 H 12/30/21 05:12 20 98 12/30/21 05:02 70 100 12/30/21 05:01 86 20 178/82 H 98 12/30/21 05:00 68 20 99 12/30/21 04:00 72 19 12/30/21 03:42 68 20 178/82 H 99 12/30/21 03:36 70 15 178/82 H 99 12/30/21 03:30 74 22 100 12/30/21 03:05 74 20 99 12/30/21 03:02 73 14 100 12/30/21 02:53 36.5 C 74 20 178/102 H 98 Code Status & VTE Plan VTE Prophylaxis Plan VTE Prophylaxis will be ordered: Yes PG Care Time/CCT Total # of Minutes Spent Total Time Spent with Patient: Total time spent is greater than 50% in coordination of care (as documented) at patient's floor/unit and/or counseling patient: Coding Level of Care Code 72487 Initial Inpt Care Lvl 3 Diagnoses Cellulitis of buttock, left L03.317 Diabetes E11.9 Hypertension I10 Hypothyroidism E03.9 GERD (gastroesophageal reflux disease) K21.9 Hyperlipidemia E78.5 Depression F32.9 DVT prophylaxis Z29.9 Memory deficit R41.3
--- NOTE | 2021-12-30 13:58 | Pharmacy Report ---
Pharmacy Vanc AUC Short Note - Date of Service December 30, 2021 - Assessment & Plan Assessment 71 year old F started on vancomycin/zosyn for left buttock cellulitis. Recently admitted at [facility] per notes and had I&D on 12/27 possibly. 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 Cultures pending Plan Vancomycin * AUC/HALLE is the preferred PK/PD target for vancomycin * AUC guided dosing is effective and associated with decreased risk of nephrotoxicity compared to traditional trough targets * Received vancomycin 1500 mg x 1 in the ER, started on vancomycin 1000 mg iv q 18 hrs * This dosing is estimated to achieve a trough of ~16 mcg/ml, target AUC/HALLE of 400-600 mg/L.hr and may be associated with a 11 % risk of nephrotoxicity * Will plan to order trough if continued >48 hrs Zosyn * 4.5 gm iv q 8 hr - appropriate for CrCl >20 Pharmacy will continue to follow and will adjust dose/frequency as necessary. Thank you.
[2021-12-30] MEDS: PIPERACILLIN/TAZOBACTAM 4.5 GM in DEXTROSE 5% 100 ML IV SCH (17:19)
[2021-12-30] MEDS: VANCOMYCIN HCL 1,000 MG in SODIUM CHLORIDE 0.9% 250 ML IV SCH (17:19)
[2021-12-30] MEDS: AMITRIPTYLINE HCL 50 MG TAB PO SCH (19:42)
[2021-12-30] MEDS: ATORVASTATIN 40 MG TAB PO SCH (19:42)
[2021-12-30] MEDS: ACETAMINOPHEN 325 MG TAB PO PRN (19:43)
[2021-12-31] MEDS: PIPERACILLIN/TAZOBACTAM 4.5 GM in DEXTROSE 5% 100 ML IV SCH ×4 (00:49→23:42)
[2021-12-31] MEDS: ACETAMINOPHEN 325 MG TAB PO PRN (05:23)
[2021-12-31 06:41] LABS: Hematocrit (blood only) 29.2 % (37-47); Hemoglobin 9.9 g/dL (12.0-16.0); Mean Corpuscular Hemoglobin 29.9 pg (25-34); Mean Corpuscular Hgb Conc 33.9 g/dL (32-36); Mean Corpuscular Volume 88.2 fL (80-100); Mean Platelet Volume 8.6 fL (7.4-10.4); Nucleated RBC # (auto) 0.05 K/uL (0-0); Nucleated RBC % (auto) 0.4 %; Platelet Count 594 K/uL (130-400); RDW Coefficient of Variation 14.5 % (11.5-14.5); RDW Standard Deviation 46.8 fL (36.4-46.3); Red Blood Count 3.31 M/uL (4.2-5.4); White Blood Count 10.49 K/uL (4.8-10.8)
[2021-12-31 07:03] LABS: BUN Creatinine Ratio 12.7 (10-20); Calcium 8.7 mg/dl (8.5-10.1); Creatinine Clr Calc Pharmacy 43.2 ml/min; Est GFR (African American) 58.9 ml/min; Est GFR (Non-African American) 50.8 ml/min; Magnesium 1.5 mg/dl (1.7-2.4); Potassium 4.1 mmol/L (3.5-5.1)
[2021-12-31 07:19] LABS: Thyroid Stimulating Hormone 7.926 uIu/ml (0.300-4.500)
[2021-12-31 07:45] LABS: Estimated Average Glucose 286 mg/dl; Hemoglobin A1C 11.6 % (4.5-5.6)
[2021-12-31 07:52] LABS: T4 Free Thyroxine 1.06 ng/dl (0.61-1.60)
[2021-12-31] MEDS: MAGNESIUM SULFATE / D5W 1 GM/100 ML BAG IV SCH ×3 (08:13→12:38)
[2021-12-31] MEDS: INSULIN ASPART PER UNIT SC SCH ×4 (08:23→20:55)
[2021-12-31] MEDS: CHOLESTYRAMINE LIGHT 4 GM PKT PO SCH ×2 (08:24→20:48)
[2021-12-31] MEDS: ASPIRIN 81 MG ECTAB PO SCH (08:24)
[2021-12-31] MEDS: hydrALAZINE HCL 25 MG TAB PO SCH ×3 (08:24→20:48)
[2021-12-31] MEDS: MEMANTINE HCL 5 MG TAB PO SCH (08:24)
[2021-12-31] MEDS: ENOXAPARIN INJ 40 MG/0.4 ML SYR SQ SCH (08:25)
--- NOTE | 2021-12-31 10:24 | Surgery Progress Note ---
Date of Service December 31, 2021 Assessment & Plan (1) Cellulitis of buttock, left: Plan: Clinically improving. White blood cell count improved. She is afebrile. Continue IV antibiotics. We may need to repeat imaging in the next day or 2 to rule out developing abscess. We will continue to follow along. Admission and Anticipated Discharge Date Admission Date: December 30, 2021 Subjective Patient continued to have pain on her left buttock however it is improved from yesterday. No new complaints. Physical Exam Constitutional: WD/WN, vitals as above no acute distress and not ill appearing Eyes: PERRL, conjunctivae normal, anicteric sclerae EOM intact bilaterally ENMT: external ear and nose normal, oropharynx normal Ears: no hearing impairment Neck: trachea midline, no thyromegaly Respiratory: normal respiratory effort; no respiratory distress and does not use accessory muscles Cardiovascular: Rate/Rhythm: regular rate and regular rhythm Gastrointestinal (Abdomen): normal bowel sounds, soft, nontender, no hepatosplenomegaly Skin: On her left buttock the erythema and inflammation has dramatically improved. There is still a firmness but no palpable fluctuance. It is still quite tender but definitely improved from yesterday. Psychiatric: Orientation: alert, oriented x 3 and cooperative Results & Data ([facility]) Vital Signs (Past 12 Hours) Vital Signs Temp Pulse Resp BP Pulse Ox 12/31/21 07:38 36.7 C 75 16 174/79 H 98 PG Care Time/CCT Total # of Minutes Spent Total Time Spent with Patient: Total time spent is greater than 50% in coordination of care (as documented) at patient's floor/unit and/or counseling patient: Coding Level of Care Code 97787 Subseq Hosp Care Lvl 2 Diagnoses Cellulitis of buttock, left L03.317
--- NOTE | 2021-12-31 12:12 | Hospitalist Progress Note ---
Date of Service December 31, 2021 Assessment & Plan (1) Cellulitis of buttock, left: Plan: At the site of her prior I&D at [place]. CDS query: Postoperative wound infection left buttock. - Follow wound and blood cultures -> No growth to date. -> Continue vancomycin and Zosyn - Gen surgery following - May need repeat I&D in next 24 - 48 hours. Site is improving on abx, so may not need surgery. (2) Diabetes: Plan: A1c was 11.6% this admission, indicating poor control. - Hold home dapagliflozin - Sliding scale insulin - Sugars running 190 - 270. Will tighten carb coverage today. (3) Memory deficit: Plan: Per niece, patient has some sort of dementia. She cannot really recall recent events as well as I would expect (like, not even clear what hospital she was in last week). Unclear how from baseline she is. - Continue home memantine (4) Hypertension: Plan: BP today is 175/80. - Continue home hydralazine (5) Hypothyroidism: Plan: TSH is 7.9 with normal FT4. Would consider this acceptable given age. - No replacement ordered at this time. (6) GERD (gastroesophageal reflux disease): Plan: - Continue home PPI (7) Hyperlipidemia: Plan: - Continue home statin (8) Depression: Plan: - Continue home amitriptyline (9) DVT prophylaxis: Plan: Lovenox 40 mg SQ daily Admission and Anticipated Discharge Date Admission Date: December 30, 2021 Subjective Left buttock pain. Reports no fevers/chills, chest pain, shortness of breath, abdominal pain, nausea, or vomiting. Physical Exam Constitutional: WD/WN, vitals as above + acute distress, + ill appearing and + disheveled Eyes: EOM intact bilaterally; no conjunctival abnormality ENMT: external ear and nose normal, oropharynx normal Neck: trachea midline, no thyromegaly normal visual inspection Respiratory: normal respiratory effort, lungs clear to auscultation no respiratory distress Cardiovascular: RRR, no murmur, no edema Gastrointestinal (Abdomen): Inspection/Auscultation: abdomen normal to inspection; abdomen not distended Musculoskeletal: no cyanosis or clubbing, extremities motor strength 5/5 Skin: no rashes, warm and dry + wound (Two surgical incisions on left buttock with surrounding erythema are improv) Neurologic: moves all extremities and awake Psychiatric: Orientation: alert, oriented to person and cooperative Results & Data Results & Data ([facility]) Vital Signs (Past 12 Hours) Vital Signs Temp Pulse Resp BP Pulse Ox 12/31/21 07:38 36.7 C 75 16 174/79 H 98 PG Care Time/CCT Total # of Minutes Spent Total Time Spent with Patient: Total time spent is greater than 50% in coordination of care (as documented) at patient's floor/unit and/or counseling patient: Coding Level of Care Code 75145 Subseq Hosp Care Lvl 2 Diagnoses Cellulitis of buttock, left L03.317 Diabetes E11.9 Memory deficit R41.3 Hypertension I10 Hypothyroidism E03.9 GERD (gastroesophageal reflux disease) K21.9 Hyperlipidemia E78.5 Depression F32.9 DVT prophylaxis Z29.9
[2021-12-31] MEDS: VANCOMYCIN HCL 1,000 MG in SODIUM CHLORIDE 0.9% 250 ML IV SCH (12:42)
[2021-12-31] MEDS: AMITRIPTYLINE HCL 50 MG TAB PO SCH (20:48)
[2021-12-31] MEDS: ATORVASTATIN 40 MG TAB PO SCH (20:48)
[2021-12-31] MEDS: INSULIN GLARGINE SOLOSTAR 100 UNITS/ML 3 ML PEN SQ SCH (20:51)
[2022-01-01] MEDS: VANCOMYCIN HCL 1,000 MG in SODIUM CHLORIDE 0.9% 250 ML IV SCH ×2 (04:50→22:29)
[2022-01-01] MEDS ORDERED: Nursing to Pharmacy Communication SCH ×2 (05:15→11:45)
[2022-01-01] MEDS ORDERED: INSULIN ASPART PER UNIT SC SCH (06:00)
[2022-01-01 08:02] LABS: Hematocrit (blood only) 29.4 % (37-47); Hemoglobin 9.8 g/dL (12.0-16.0); Mean Corpuscular Hemoglobin 29.1 pg (25-34); Mean Corpuscular Hgb Conc 33.3 g/dL (32-36); Mean Corpuscular Volume 87.2 fL (80-100); Mean Platelet Volume 8.5 fL (7.4-10.4); Platelet Count 597 K/uL (130-400); RDW Coefficient of Variation 14.8 % (11.5-14.5); RDW Standard Deviation 46.4 fL (36.4-46.3); Red Blood Count 3.37 M/uL (4.2-5.4); White Blood Count 10.92 K/uL (4.8-10.8)
[2022-01-01 08:26] LABS: BUN Creatinine Ratio 10.5 (10-20); Calcium 8.6 mg/dl (8.5-10.1); Creatinine Clr Calc Pharmacy 45.3 ml/min; Est GFR (African American) 62.3 ml/min; Est GFR (Non-African American) 53.8 ml/min; Magnesium 1.8 mg/dl (1.7-2.4); Potassium 3.9 mmol/L (3.5-5.1)
[2022-01-01] MEDS: ASPIRIN 81 MG ECTAB PO SCH (08:49)
[2022-01-01] MEDS: hydrALAZINE HCL 25 MG TAB PO SCH ×3 (08:49→20:48)
[2022-01-01] MEDS: MEMANTINE HCL 5 MG TAB PO SCH (08:49)
[2022-01-01] MEDS: ENOXAPARIN INJ 40 MG/0.4 ML SYR SQ SCH (08:49)
[2022-01-01] MEDS: CHOLESTYRAMINE LIGHT 4 GM PKT PO SCH ×2 (08:49→20:48)
[2022-01-01] MEDS: PIPERACILLIN/TAZOBACTAM 4.5 GM in DEXTROSE 5% 100 ML IV SCH ×2 (08:49→16:12)
--- NOTE | 2022-01-01 09:10 | Surgery Progress Note ---
Date of Service January 01, 2022 Assessment & Plan (1) Cellulitis of buttock, left: Plan: Improving. Continue antibiotics. Will obtain an ultrasound today to see if there is an abscess that is organized. If so we will drain today. Keep her n.p.o. until the ultrasound results. Admission and Anticipated Discharge Date Admission Date: December 30, 2021 Subjective Patient seen. Continues to have some buttock discomfort but it is improving. Physical Exam Constitutional: WD/WN, vitals as above no acute distress and not ill appearing Eyes: PERRL, conjunctivae normal, anicteric sclerae EOM intact bilaterally ENMT: external ear and nose normal, oropharynx normal Ears: no hearing impairment Neck: trachea midline, no thyromegaly Respiratory: normal respiratory effort; no respiratory distress and does not use accessory muscles Cardiovascular: Rate/Rhythm: regular rate and regular rhythm Gastrointestinal (Abdomen): normal bowel sounds, soft, nontender, no hepatosplenomegaly Skin: Again clinically this area is improving. There is no warmth or erythema. 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 It is firm. I am unable to tell if there is fluid or not Psychiatric: Orientation: alert, oriented x 3 and cooperative Results & Data ([facility]) Vital Signs (Past 12 Hours) Vital Signs Temp Pulse Resp BP Pulse Ox 01/01/22 08:27 36.6 C 73 18 148/80 H 98 PG Care Time/CCT Total # of Minutes Spent Total Time Spent with Patient: Total time spent is greater than 50% in coordination of care (as documented) at patient's floor/unit and/or counseling patient: Coding Level of Care Code 09770 Subseq Hosp Care Lvl 2 Diagnoses Cellulitis of buttock, left L03.317
--- NOTE | 2022-01-01 11:21 | Ultrasound Report ---
LEFT BUTTOCK ULTRASOUND CLINICAL HISTORY: rule out abcess/fluid collection COMPARISON STUDY: CT of the pelvis December 30, 2021. TECHNIQUE: Sonography of the left buttock was performed. FINDINGS: Note is made of extensive edema of the left buttock consistent with cellulitis. No well-def ined fluid collection is noted. However, note is made of subcutaneous hypoechoic material of the left buttock which favors phlegmon. A developing abscess could appear similar. This does not have well-de fined margins. IMPRESSION: Extensive left buttock cellulitis. No well-defined fluid collection. Subcutaneous hypoec hoic material of the left buttock favors phlegmon. A developing abscess could appear similar. No defi nite drainable collection. ACT 112: Negative or not required by law. Electronically signed by: Bc Reese M.D. 01/01/2022 11:20 AM
--- NOTE | 2022-01-01 13:21 | Pharmacy Report ---
Pharmacy Vanc AUC Short Note - Date of Service January 01, 2022 - Assessment & Plan Assessment 71 year old F receiving empiric vancomycin and zosyn for treatment of left buttock cellulitis. Pertinent microbiologic data includes: left buttock culture growing lactobacillus species. Blood cultures show no growth at 48 hours. Recently admitted at [facility] per notes and had I&D on 12/27 possibly. Discharged on clindamycin, however was not able to knot picker cloth Rx to take. Day # 3 of antimicrobial therapy. Plan Vancomycin * AUC/HALLE is the preferred PK/PD target for vancomycin * AUC guided dosing is effective and associated with decreased risk of nephrotoxicity compared to traditional trough targets * Random level of 24.9 mcg/mL is predicted to achieve target AUC/HALLE of 400-600 mg/L.hr and may be associated with a 13 % risk of nephrotoxicity * Continue dose of 1000 mg IV every 18 hours Zosyn * 4.5 g IV q8h - appropriate based on BMI Pharmacy will continue to follow and will adjust dose/frequency as necessary. Thank you.
--- NOTE | 2022-01-01 15:05 | Hospitalist Progress Note ---
Date of Service January 01, 2022 Assessment & Plan (1) Cellulitis of buttock, left: Plan: At the site of her prior I&D at [place]. CDS query: Postoperative wound infection left buttock. - Follow wound and blood cultures -> Wound growing Lactobacillus spc. -> Continue vancomycin and Zosyn - Gen surgery following - May need repeat I&D in next 24 - 48 hours. Site is improving on abx, so may not need surgery. U/s on 01/01 without developed abscess. (2) Diabetes: Plan: A1c was 11.6% this admission, indicating poor control. - Hold home dapagliflozin - Added Lantus 15 units HS on 12/31; per DM educator, she is on 30 units HS at home. - Sliding scale insulin - Sugars running 160 - 200. Will leave SSI stable as she was NPO much of the day. (3) Memory deficit: Plan: Per niece, patient has some sort of dementia. She cannot really recall recent events as well as I would expect (like, not even clear what hospital she was in last week). Unclear how from baseline she is. - Continue home memantine (4) Hypertension: Plan: BP today is 150/80. - Continue home hydralazine (5) Hypothyroidism: Plan: TSH is 7.9 with normal FT4. Would consider this acceptable given age. - No replacement ordered at this time. (6) GERD (gastroesophageal reflux disease): Plan: - Continue home PPI (7) Hyperlipidemia: Plan: - Continue home statin (8) Depression: Plan: - Continue home amitriptyline (9) DVT prophylaxis: Plan: Lovenox 40 mg SQ daily Admission and Anticipated Discharge Date Admission Date: December 30, 2021 Subjective Doing ok today. Less pain in the buttock. Reports no fevers/chills, chest pain, shortness of breath, abdominal pain, nausea, or vomiting. Physical Exam Constitutional: WD/WN, vitals as above + ill appearing and + disheveled Eyes: EOM intact bilaterally; no conjunctival abnormality ENMT: external ear and nose normal, oropharynx normal Neck: trachea midline, no thyromegaly normal visual inspection Respiratory: normal respiratory effort, lungs clear to auscultation no respiratory distress Cardiovascular: RRR, no murmur, no edema Gastrointestinal (Abdomen): Inspection/Auscultation: abdomen normal to inspection; abdomen not distended Musculoskeletal: no cyanosis or clubbing, extremities motor strength 5/5 Skin: no rashes, warm and dry + wound (Two surgical incisions on left buttock with surrounding erythema are improv) Neurologic: moves all extremities and awake Psychiatric: Orientation: alert, oriented to person and cooperative Results & Data Results & Data ([facility]) Vital Signs (Past 12 Hours) Vital Signs Temp Pulse Resp BP Pulse Ox 01/01/22 08:27 36.6 C 73 18 148/80 H 98 PG Care Time/CCT Total # of Minutes Spent Total Time Spent with Patient: Total time spent is greater than 50% in coordination of care (as documented) at patient's floor/unit and/or counseling patient: Coding Level of Care Code 82804 Subseq Hosp Care Lvl 3 Diagnoses Cellulitis of buttock, left L03.317 Diabetes E11.9 Memory deficit R41.3 Hypertension I10 Hypothyroidism E03.9 GERD (gastroesophageal reflux disease) K21.9 Hyperlipidemia E78.5 Depression F32.9 DVT prophylaxis Z29.9
[2022-01-01] MEDS: INSULIN ASPART PER UNIT SC SCH ×2 (18:31→20:59)
[2022-01-01] MEDS: AMITRIPTYLINE HCL 50 MG TAB PO SCH (20:48)
[2022-01-01] MEDS: ATORVASTATIN 40 MG TAB PO SCH (20:48)
[2022-01-01] MEDS: INSULIN GLARGINE SOLOSTAR 100 UNITS/ML 3 ML PEN SQ SCH (20:50)
[2022-01-02] MEDS: PIPERACILLIN/TAZOBACTAM 4.5 GM in DEXTROSE 5% 100 ML IV SCH ×2 (00:56→07:31)
[2022-01-02 07:35] LABS: Hematocrit (blood only) 29.9 % (37-47); Hemoglobin 9.9 g/dL (12.0-16.0); Mean Corpuscular Hemoglobin 29.5 pg (25-34); Mean Corpuscular Hgb Conc 33.1 g/dL (32-36); Mean Platelet Volume 8.5 fL (7.4-10.4); Platelet Count 582 K/uL (130-400); RDW Coefficient of Variation 14.7 % (11.5-14.5); RDW Standard Deviation 47.6 fL (36.4-46.3); Red Blood Count 3.36 M/uL (4.2-5.4); White Blood Count 10.07 K/uL (4.8-10.8)
[2022-01-02 08:00] LABS: BUN Creatinine Ratio 9.3 (10-20); Calcium 8.6 mg/dl (8.5-10.1); Creatinine Clr Calc Pharmacy 40.3 ml/min; Est GFR (African American) 54.1 ml/min; Est GFR (Non-African American) 46.7 ml/min; Magnesium 1.5 mg/dl (1.7-2.4)
[2022-01-02] MEDS: INSULIN ASPART PER UNIT SC SCH ×2 (08:40→13:08)
[2022-01-02] MEDS: ENOXAPARIN INJ 40 MG/0.4 ML SYR SQ SCH (08:41)
[2022-01-02] MEDS: MEMANTINE HCL 5 MG TAB PO SCH (08:41)
[2022-01-02] MEDS: CHOLESTYRAMINE LIGHT 4 GM PKT PO SCH ×2 (08:41→08:46)
[2022-01-02] MEDS: hydrALAZINE HCL 25 MG TAB PO SCH ×2 (08:41→13:08)
[2022-01-02] MEDS: ASPIRIN 81 MG ECTAB PO SCH (08:41)
[2022-01-02] MEDS: MAGNESIUM SULFATE / D5W 1 GM/100 ML BAG IV SCH ×3 (09:52→13:44)
--- NOTE | 2022-01-02 11:11 | Surgery Progress Note ---
Date of Service January 02, 2022 Assessment & Plan (1) Cellulitis: Plan: I re-imaged the area yesterday which continues to show area of inflammation however no drainable abscess. We will sign off. Please call if we can be of assistance. (2) Buttock wound: Admission and Anticipated Discharge Date Admission Date: December 30, 2021 Subjective Patient seen. She continues to slowly improve. 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 Again this continues to improve day by day. Minimal drainage. There is no redness or warmth. Psychiatric: Orientation: alert, oriented x 3 and cooperative Results & Data ([facility]) Vital Signs (Past 12 Hours) Vital Signs Temp Pulse Resp BP Pulse Ox 01/02/22 07:14 36.6 C 78 18 136/78 99 01/01/22 23:22 36.8 C 81 16 154/72 H 97 PG Care Time/CCT Total # of Minutes Spent Total Time Spent with Patient: Total time spent is greater than 50% in coordination of care (as documented) at patient's floor/unit and/or counseling patient: Coding Level of Care Code 82030 Subseq Hosp Care Lvl 2 Diagnoses Cellulitis L03.317 Site of cellulitis: buttock Buttock wound S31.829A Encounter type: initial encounter Laterality: left (1) Cellulitis Site of cellulitis: buttock Qualified Code(s): L03.317 - Cellulitis of buttock (2) Buttock wound Encounter type: initial encounter Laterality: left Qualified Code(s): S31.829A - Unspecified open wound of left buttock, initial encounter
--- NOTE | 2022-01-02 13:13 | Discharge Summary ---
Date of Service January 02, 2022 Admission HPI Per Admitting Provider 71yo F w/ hx of DM, HTN who presents with left buttock cellulitis. The patient was brought to the ER by EMS after her family felt she was lethargic at home. The patient is a poor historian, and cannot really give any meaningful medical history or even a recitation of recent events. Per her niece, Jyoti, the patient had been having some boils or abscesses on her buttock which they were treating with topical Neosporin and Sitz baths. However, the abscesses became worse, and she was hospitalized at [facility] [place] for what sounds like an I&D on 12/27. She was discharged to home; however, the family has no access to a vehicle, and no one picked up the antibiotic that was prescribed (clindamycin). Over the course of the last few days, she has had increased pain in the left buttock region and been more lethargic at home. Principal Diagnosis Left buttock cellulitis at prior surgical site Discharge Exam Constitutional WD/WN, vitals as above Eyes EOM intact bilaterally; no conjunctival abnormality ENMT external ear and nose normal, oropharynx normal Neck trachea midline, no thyromegaly normal visual inspection Respiratory normal respiratory effort, lungs clear to auscultation no respiratory distress Cardiovascular RRR, no murmur, no edema Gastrointestinal (Abdomen) Inspection/Auscultation: abdomen normal to inspection; abdomen not distended Musculoskeletal no cyanosis or clubbing, extremities motor strength 5/5 Skin no rashes, warm and dry + wound (Two surgical incisions on left buttock with surrounding erythema are improv) Neurologic moves all extremities and awake Psychiatric Orientation: alert, oriented to person and cooperative Discharge Data Allergies Allergy/AdvReac Type Severity Reaction Status Date / Time amlodipine Allergy Severe SHORT OF Verified 12/30/21 03:06 BREATH adhesive Allergy Intermediate ITCHY RASH Verified 12/30/21 03:06 buspirone [From BuSpar] Allergy Unknown CAN'T Verified 12/30/21 03:06 REMEMBER duloxetine [From Cymbalta] Allergy Unknown CAN'T Verified 12/30/21 03:06 REMEMBER Penicillins AdvReac Intermediate Vomiting Verified 12/30/21 03:06 Consultations 12/30/21 07:32 ED Decision to Admit Stat 12/30/21 09:26 Consult General Surgery Routine Ordered Studies 12/30/21 03:05 CT pelvis w/IV con only Urgent 01/01/22 09:05 US softtissue plvcwall/buttock Urgent Diabetes Follow up Diabetes Follow-up Needed for HgbA1c >9% Hospital Course (1) Cellulitis of buttock, left: At the site of her prior I&D at [place]. CDS query: Postoperative wound infection left buttock. - Follow wound and blood cultures -> Wound growing Lactobacillus spc. -> Continue vancomycin and Zosyn - Gen surgery following - U/s on 01/01 without developed abscess. - Discussed with Dr. Rust on 01/02. Gave approval for discharge. Cellulitis resolved. Will discharge on Bactrim + Augmentin for 7 more days. F/u with gen surgery. Appt made and van transit was actually arranged for the patient as well to the most possible to help her get proper follow-up. Home health set up for wound care. (2) Diabetes: A1c was 11.6% this admission, indicating poor control. - Held home dapagliflozin - Added Lantus 15 units HS on 12/31; per DM educator, she is on 30 units HS at home. - Sliding scale insulin - Sugars running 160 - 200. Will leave SSI stable as she was NPO much of the day. (3) Memory deficit: Per niece, patient has some sort of dementia. She cannot really recall recent events as well as I would expect (like, not even clear what hospital she was in last week). Unclear how from baseline she is. - Continue home memantine - Seemed to improve by discharge, was more bright and interactive. Possibly some level of encephalopathy from sepsis? Will need o/p f/u. (4) Hypertension: BP today is 135/80. - Continue home hydralazine (5) Hypothyroidism: TSH is 7.9 with normal FT4. Would consider this acceptable given age. - No replacement ordered at this time. (6) GERD (gastroesophageal reflux disease): - Continue home PPI (7) Hyperlipidemia: - Continue home statin (8) Depression: - Continue home amitriptyline (9) DVT prophylaxis: Lovenox 40 mg SQ daily Total Time Total Time Spent Total Time Spent (In Minutes): 45 Discharge Plan Discharge Items Patient Disposition: Home - Home Health Services Reason For Visit: BUTTOCK CELLULITIS Discharge Diagnosis: Cellulitis of prior surgical site Activity: Resume your previous activity Non-emergency contact: Primary Care Provider Call non-emergency contact if: your symptoms worsen and your temperature is above 101 Follow-up/Referrals: Brant Rust, [Surgeon] - 01/11/22 10:00 am (Please see Dr. Rust in 1-2 weeks for a check-up of your bottom. [facility] has already been set up to get you to this appointment. They will pick you up at your home around 8:30am on the morning of the appointment.) Melodie Antunez PA-C [Primary Care Provider] - Diet: Heart Healthy Addtl Attending Provider Instructions: Ms. Hall, You were admitted to [facility] with an infection at the site of your prior surgery at [facility]. You did well on antibiotics here, and we are discharging you home with another week of antibiotics. Please see Dr. Rust in the office in 1-2 weeks to be sure it is healing well. Please take the antibiotics (there will be two) twice a day until they are complete gone, even if you are feeling better before that. You need to finish all the antibiotics to give you the best chance of having your infection resolve. Pending Studies at Discharge: Yes Stand-Alone Forms: My [facility], Smoking Cessation Medications and DC Order Prescriptions: New sulfamethoxazole-trimethoprim [Bactrim DS] 800-160 mg tablet 1 tab PO BID Qty: 14 RF: 0 amoxicillin-pot clavulanate 875-125 mg tablet 1 tab PO BID Qty: 14 RF: 0 Continued atorvastatin 40 mg Tablet 40 mg PO HS RF: 0 hydralazine 25 mg Tablet 25 mg PO TID RF: 0 aspirin 81 mg Tablet,Delayed Release (Dr/Ec) 81 mg PO DAILY RF: 0 amitriptyline 50 mg Tablet 50 mg PO HS RF: 0 insulin aspart U-100 100 unit/mL Solution 11 unit SUBCUT TIDM RF: 0 omeprazole 20 mg Capsule,Delayed Release(Dr/Ec) 20 mg PO DAILY RF: 0 nystatin 100,000 unit/gram Powder 1 applic TOPICAL BID PRN (Reason: Skin Irritation) RF: 0 ketoconazole 2 % Cream 1 applic TOPICAL BID RF: 0 cholestyramine (with sugar) 4 gram Powder 4 g PO BID RF: 0 memantine 5 mg Tablet 5 mg PO QAM RF: 0 Farxiga 10 mg Tablet 10 mg PO DAILY RF: 0 Discontinued clindamycin HCl 300 mg capsule 300 mg PO Q6H RF: 0 Discharge Orders: Discharge Order (Routine); Ordered 01/02/22 Ordered By: Beck Wells Admission Data Admit Date/Time: 12/30/21 07:43 Attending Provider: Beck Wells Admit Provider: Beck Wells Primary Care Provider: Melodie Antunez Other Providers: Beck Wells ; Brant Rust ; [facility] Coding Level of Care Code D/C DAY MANAGEMENT >30 MINS Diagnoses Cellulitis of buttock, left L03.317 Diabetes E11.9 Memory deficit R41.3 Hypertension I10 Hypothyroidism E03.9 GERD (gastroesophageal reflux disease) K21.9 Hyperlipidemia E78.5 Depression F32.9 DVT prophylaxis Z29.9
== END 2022-01-02 17:00 | disposition home health service (06) ==
LOC: ED 02:45 → 3W 07:43 → INTOOBSV 07:43 → 3W 08:57

== ENCOUNTER 2022-03-04 17:11 | Inpatient (IN) ==
[2022-03-04] MEDS ORDERED: SODIUM CHLORIDE 0.9% 1000ML 1,000 ML IV SCH (17:30)
--- NOTE | 2022-03-04 17:32 | Emergency Department Note ---
History of Present Illness General Chief complaint: Hyperglycemia History of Present Illness 71-year-old female presents to the ED with a chief complaint of hyperglycemia. The patient states that she checked her blood sugar about an hour after eating [place] fries, chicken and cake. She states that her blood sugar was 592. She is otherwise asymptomatic and without any symptoms. The patient states that she took her normal 12 units of insulin before eating the meal. She believes she took the NovoLog insulin. She normally takes 12 units of NovoLog before meals. She states that she only eats twice a day. She then normally takes 30 units of Lantus at night. Again no complaints other than the elevated blood sugar. This is the reason she came in. Home Medications Medication Instructions Recorded Confirmed Type amitriptyline 50 mg tablet 50 mg PO HS 12/30/21 01/21/22 History aspirin 81 mg tablet,delayed 81 mg PO DAILY 12/30/21 01/21/22 History release atorvastatin 40 mg tablet 40 mg PO HS 12/30/21 01/21/22 History cholestyramine (with sugar) 4 gram 4 g PO BID 12/30/21 01/21/22 History oral powder dapagliflozin 10 mg tablet 10 mg PO DAILY 12/30/21 01/21/22 History (Farxiga) hydralazine 25 mg tablet 25 mg PO TID 12/30/21 01/21/22 History insulin aspart U-100 100 unit/mL 11 unit subcut TIDM 12/30/21 01/21/22 History subcutaneous solution ketoconazole 2 % topical cream 1 applic topical BID 12/30/21 01/21/22 History memantine 5 mg tablet 5 mg PO QAM 12/30/21 01/21/22 History nystatin 100,000 unit/gram topical 1 applic topical BID PRN Skin 12/30/21 01/21/22 History powder Irritation omeprazole 20 mg capsule,delayed 20 mg PO DAILY 12/30/21 01/21/22 History release Allergies Allergy/AdvReac Type Severity Reaction Status Date / Time amlodipine Allergy Severe SHORT OF Verified 01/21/22 10:51 BREATH adhesive Allergy Intermediate ITCHY RASH Verified 01/21/22 10:51 buspirone [From BuSpar] Allergy Unknown CAN'T Verified 01/21/22 10:51 REMEMBER duloxetine [From Cymbalta] Allergy Unknown CAN'T Verified 01/21/22 10:51 REMEMBER Penicillins AdvReac Intermediate Vomiting Verified 01/21/22 10:51 Past Med/Surg History Medical History Depression Diabetes GERD (gastroesophageal reflux disease) Hypertension Hypothyroidism Memory deficit Surgical History History of hysterectomy Social History Smoking Status: Current every day smoker Cigarettes Per Day: 20; Hx Alcohol Use: No Hx Substance Use: No Preferred Language: Vietnamese Communication Ability: Effective [employer] 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: No Beliefs That Will Affect Care: None marital status: Current Living Situation: Alone Feels Safe at Home: Yes Assistive Devices: Walker Review of Systems A total of 10 systems reviewed and were otherwise negative Physical Exam Vital Signs Vital Signs - 24 hr 03/04/22 17:15 03/04/22 17:22 Pulse Rate 76 Pulse Rate [Right Finger] 76 Pulse Rhythm Irregular Respiratory Rate 18 18 Respiratory Effort / Characteristics Non-Labored Respiratory Depth Normal Blood Pressure 144/83 H Blood Pressure [Left Arm] 144/83 H Blood Pressure Mean 103 Blood Pressure Mean [Left Arm] 103 Sepsis Recent Fever Within 48 Hours No Sepsis New/Unexplained Change in Mental Status No Sepsis Action Taken by Nursing No Action Required CONSTITUTIONAL/VITAL SIGNS: Reviewed / noted above. GENERAL: Non-toxic in appearance. INTEGUMENTARY: Warm, dry, and [place]. HEAD: Normocephalic. EYES: without scleral icterus or trauma. ENT/OROPHARYNX: clear and moist. LYMPHADENOPATHY/NECK: Is supple without lymphadenopathy or meningismus. RESPIRATORY: Clear to auscultation bilaterally. No increased work of breathing. CARDIOVASCULAR: Regular rate and rhythm. GI/ABDOMEN: Soft and nontender. No organomegaly or pulsatile mass. EXTREMITIES: Warm and well perfused. BACK: No CVA tenderness. NEUROLOGICAL: Intact without focal deficits. PSYCHIATRIC: normal affect. MUSCULOSKELETAL: Normally developed with good muscle tone. TRIAGE NURSING DOCUMENTATION REVIEWED. Course Administered Medications Sodium Chloride (Nss 1000ml) 1,000 mls @ 999 mls/hr IV .Q1H1M [place] Stop: 03/04/22 18:30 Last Admin: 03/04/22 17:30 Dose: 999 mls/hr Documented By: HELENA Medical Decision Making Differential Diagnosis Differential includes acute coronary syndrome, myocardial infarction, CVA, TIA, anemia, infection, pneumonia, UTI, pyelonephritis, poor nutrition, dehydration, electrolyte disturbance,hypoglycemia. Medical Records Attestation: I reviewed the patient's medical records. Home Medications Current Medication List: was personally reviewed by me Laboratory Data Attestation: I reviewed the patient's lab results. Result diagrams: 03/04/22 17:24 03/04/22 17:24 Lab Results 03/04/22 03/04/22 03/04/22 Range/Units 17:21 17:24 17:24 WBC 10.42 (4.8-10.8) K/ul RBC 4.15 (3.93-5.22) M/uL Hgb 12.1 (12.0-16.0) g/dl Hct 35.6 (34.1-44.9) % MCV 85.8 (80.0-100.0) fL MCH 29.2 (25.0-34.0) pg MCHC 34.0 (32.0-36.0) g/dL RDW Std Deviation 43.8 (36.4-46.3) fL RDW Coeff of Julio 14.0 (11.5-14.5) % Plt Count 376 (130-400) K/uL MPV 9.5 (9.4-12.3) fL Immature Gran % (Auto) 0.4 % Neut % (Auto) 44.2 % Lymph % (Auto) 47.3 % Gonzales % (Auto) 6.4 % Eos % (Auto) 0.8 % Baso % (Auto) 0.9 % Neut # (Auto) 4.61 (1.4-6.5) K/uL Lymph # (Auto) 4.93 H (1.2-3.4) K/uL Gonzales # (Auto) 0.67 (0.24-0.82) K/uL Eos # (Auto) 0.08 (0-0.50) K/uL Baso # (Auto) 0.09 (0-0.2) K/uL Immature Gran # (Auto) 0.04 H (0.00-0.02) K/uL Sodium 131 L (136-145) mmol/L Potassium 4.8 (3.5-5.1) mmol/L Chloride 102 (98-107) mmol/L Carbon Dioxide 18 L (21-32) mmol/L Anion Gap 11 (3-11) BUN 61 H (6-23) mg/dl Creatinine 2.35 H (0.6-1.2) mg/dl Est Cr Clr Drug Dosing 21.3 ml/min Est GFR ( Amer) 23.5 ml/min Est GFR (Non-Af Amer) 20.3 ml/min BUN/Creatinine Ratio 26.0 H (10-20) Glucose 404 H* (70-99(Fasting)) mg/dl POC Glucose 393 H* (70-99) mg/dl Calcium 9.5 (8.5-10.1) mg/dl Total Bilirubin 0.4 (0.2-1.0) mg/dl AST 31 (13-39) U/L ALT 31 (7-52) U/L Alkaline Phosphatase 132 H (34-104) U/L Total Protein 8.5 H (6.0-8.3) gm/dl Albumin 4.4 (3.4-5.0) gm/dl Globulin 4.1 H (2.5-4.0) gm/dl Albumin/Globulin Ratio 1.1 (0.9-2) MDM Narrative 71-year-old female presents to the ED for blood sugar of 592 at home. She took her blood sugar 1 hour after eating [place] fries, chicken and a piece of cake. She took 12 units of NovoLog insulin before eating. Her blood sugar currently is 393. The patient's laboratory test show a BUN of 61 and creatinine of 2.35. Baseline creatinine is 1.18 as of 2 months ago. CBC was unremarkable. The patient was treated with a liter of normal saline IV. She will be seen by the hospitalist for further inpatient evaluation and care. Impression & Plan Acute hyperglycemia, Acute kidney injury, Acute dehydration Discharge Plan Visit Data Chief Complaint: Hyperglycemia ED Provider: Charles Humphrey Discharge Problem: Acute hyperglycemia, Acute kidney injury, Acute dehydration Patient Disposition: Being Evaluated by Hospitalist Forms Stand Alone Forms: My [facility] Prescriptions Prescriptions: No Action atorvastatin 40 mg Tablet 40 mg PO HS hydralazine 25 mg Tablet 25 mg PO TID aspirin 81 mg Tablet,Delayed Release (Dr/Ec) 81 mg PO DAILY amitriptyline 50 mg Tablet 50 mg PO HS insulin aspart U-100 100 unit/mL Solution 11 unit SUBCUT TIDM omeprazole 20 mg Capsule,Delayed Release(Dr/Ec) 20 mg PO DAILY nystatin 100,000 unit/gram Powder 1 applic TOPICAL BID PRN (Reason: Skin Irritation) ketoconazole 2 % Cream 1 applic TOPICAL BID Rx Instructions: APPLY TO AFFECTED AREA cholestyramine (with sugar) 4 gram Powder 4 g PO BID memantine 5 mg Tablet 5 mg PO QAM Farxiga 10 mg Tablet 10 mg PO DAILY Referrals Referrals: Melodie Antunez PA-C [Primary Care Provider] -
[2022-03-04 17:52] LABS: Basophils # (auto) 0.09 K/uL (0-0.2); Basophils % (auto) 0.9 %; Eosinophils # (auto) 0.08 K/uL (0-0.50); Eosinophils % (auto) 0.8 %; Hematocrit (blood only) 35.6 % (34.1-44.9); Hemoglobin 12.1 g/dl (12.0-16.0); Immature Granulocytes # (auto) 0.04 K/uL (0.00-0.02); Immature Granulocytes % (auto) 0.4 %; Lymphocytes # (auto) 4.93 K/uL (1.2-3.4); Lymphocytes % (auto) 47.3 %; Mean Corpuscular Hemoglobin 29.2 pg (25.0-34.0); Mean Corpuscular Volume 85.8 fL (80.0-100.0); Mean Platelet Volume 9.5 fL (9.4-12.3); Monocytes # (auto) 0.67 K/uL (0.24-0.82); Monocytes % (auto) 6.4 %; Neutrophils # (auto) 4.61 K/uL (1.4-6.5); Neutrophils % (auto) 44.2 %; Platelet Count 376 K/uL (130-400); RDW Standard Deviation 43.8 fL (36.4-46.3); Red Blood Count 4.15 M/uL (3.93-5.22); White Blood Count 10.42 K/ul (4.8-10.8)
[2022-03-04 18:07] LABS: Albumin Globulin Ratio 1.1 (0.9-2); Albumin Level 4.4 gm/dl (3.4-5.0); Bilirubin,Total 0.4 mg/dl (0.2-1.0); Calcium 9.5 mg/dl (8.5-10.1); Creatinine Clr Calc Pharmacy 21.3 ml/min; Est GFR (African American) 23.5 ml/min; Est GFR (Non-African American) 20.3 ml/min; Globulin 4.1 gm/dl (2.5-4.0); Potassium 4.8 mmol/L (3.5-5.1); Total Protein 8.5 gm/dl (6.0-8.3)
--- NOTE | 2022-03-04 19:36 | History & Physical Report ---
Date of Service March 04, 2022 Assessment & Plan (1) Acute kidney injury: Plan: BUN 61/Cr 2.35, baseline Cr 1.1. Suspect pre-renal injury due to poor PO intake as well as uncontrolled diabetes. - s/p NSS 1L bolus in ED - continue with LR @125cc/hr - avoid nephrotoxins - trend BMP in AM (2) Hyperglycemia due to diabetes mellitus: Plan: BSG reportedly 592 at home, was 400 on presentation and improved to ~300 after 1L IV fluids. A1c 11.6 on 12/31/2021. Suspect uncontrolled diabetes primarily due to dietary non-compliance; patient eats only twice per day and often eats desserts, fried foods and sugary drinks. Of note patient's dementia, and associated suspicion for medication non-adherence, likely is also contributing. - BSG improved to ~300 after IVFs, without insulin as of yet - no associated symptoms concerning for HHS - HCO3 18 (chronic baseline), AG not elevated - check VBG - pending - utilize SSI and Lantus 15 units BID (~home regimen) - will do Q4H BSG checks for now - suspect that our DM2 dietary limitations will be very therapeutic for this patient (3) Memory deficit: Plan: Reported history of dementia. Appears to be at chronic baseline currently. I am concerned that patient is unable to care properly for herself at her apartment, although she thankfully does have help with iADLs from her niece who lives on her floor. - consult case management - continue home Memantine (4) Ambulatory dysfunction: Plan: Suspect largely due to deconditioning in this elderly demented patient who is largely completely sedentary. - PT/OT consults placed - appreciate recs (5) Hypertension: Plan: Chronic, not hypertensive in ED. - continue home Hydralazine - consider adjustment of home regimen i.e. SUZY-I vs ARB - defer to primary team/PCP (6) Hypothyroidism: Plan: TSH 7.926/FT4 1.06 as of 12/31/2021 - subclinical. Patient does report progressive generalized weakness/fatigue which is most likely in context of d ementia/deconditioning. - check TSH and FT4 (7) Buttock wound: Plan: Hospitalization in 12/2021 for IV abx and drainage of buttock abscess. F/u with surgery in January with no concerns. Not on abx, but does have small persistent ulcer - her niece helps with wound care. No concern for sepsis or infection. - wound care daily (8) Constipation: Plan: Chronic, hard BMs every 1-2 days. - ordered Miralax x1 now, followed by PRN daily (9) Hyperlipidemia: Plan: Continue home Atorvastatin and Aspirin (10) Fibromyalgia: Plan: continue home Amitriptyline (11) Sleep apnea: Plan: Does not tolerate CPAP (12) GERD (gastroesophageal reflux disease): Plan: Protonix per hospital formulary (13) Tobacco use disorder: Plan: 1ppd, 55 pack year history. - ordered nicotine patch - encourage cessation Plan FEN/GI: DM2 diet; LR @125cc/hr DVT Prophylaxis: Heparin SQ Code Status: DNR/DNI Disposition: med/surg, PT/OT/CM consults placed - may require SNF vs rehab History of Present Illness Chief Complaint: hyperglycemia Primary Care Provider: Melodie Tulio Hall is a 71yo female with PMHx significant for uncontrolled T2DM (A1c 11.6 on 12/31/2021), HTN, HLD, SEEMA (does not tolerate CPAP), GERD, fibromyalgia and dementia who presented to [facility] ED on 03/04 for hyperglycemia. Patient reportedly took BSG ~1 hour after eating cake, fried chicken and tajik fries, and it was elevated at 592. Patient denies associated lightheadedness/dizziness, polydipsia, polyuria, N/V, or abdominal pain. Reports that she usually only eats twice per day, takes NovoLog 12 units before meals, and takes Lantus 30 units before bed. Does not always check BSG every day but when she does usually gets low-to-mid 200s. Patient does not have clear memory of what has happened before the last 1-2 days - this appears to be baseline per previous evaluations here. She was able to tell me that she was in a "hospital here, that is not [facility]" for a buttock abscess - of note she was admitted at [facility] for several days in 12/2021 for the buttock abscess. She states that she sometimes misses medication doses and did not take any medications this morning. Also reports chronically poor fluid intake - drinks mostly Gatorade but not much water or other fluids. Patient lives on her own in an apartment. Her sister and niece live on the same floor as her and her niece helps her with iADLs, but she does report chronically progressive weakness. Mostly sits on the couch all day over the last several months and is finding it more difficult to ambulate around her apartment with a walker. Denies falls. In the ED the patient was hemodynamically stable on room air. Labs significant for Na 131, BSG 404 (corrected Na 138). BUN 61/Cr 2.35 (baseline 1.1). HCO3 18 (baseline). AG 11. K 4.8. Patient received NSS 1L bolus. BSG improved to 303 without insulin. Allergies Allergy/AdvReac Type Severity Reaction Status Date / Time amlodipine Allergy Severe SHORT OF Verified 03/04/22 22:32 BREATH adhesive Allergy Intermediate ITCHY RASH Verified 03/04/22 22:32 buspirone [From BuSpar] Allergy Unknown CAN'T Verified 03/04/22 22:32 REMEMBER duloxetine [From Cymbalta] Allergy Unknown CAN'T Verified 03/04/22 22:32 REMEMBER Penicillins AdvReac Intermediate Vomiting Verified 03/04/22 22:32 Home Medications Medication Instructions Recorded Confirmed Type amitriptyline 50 mg tablet 100 mg PO HS 12/30/21 03/04/22 History atorvastatin 40 mg tablet 40 mg PO HS 12/30/21 03/04/22 History cholestyramine (with sugar) 4 gram 4 g PO BID 12/30/21 03/04/22 History oral powder dapagliflozin 10 mg tablet 10 mg PO DAILY 12/30/21 03/04/22 History (Farxiga) hydralazine 25 mg tablet 25 mg PO TID 12/30/21 03/04/22 History insulin aspart U-100 100 unit/mL 12 unit subcut TIDM 12/30/21 03/04/22 History subcutaneous solution ketoconazole 2 % topical cream 1 applic topical BID 12/30/21 03/04/22 History memantine 5 mg tablet 5 mg PO QAM 12/30/21 03/04/22 History nystatin 100,000 unit/gram topical 1 applic topical BID PRN Skin 12/30/21 03/04/22 History powder Irritation omeprazole 20 mg capsule,delayed 20 mg PO DAILY 12/30/21 03/04/22 History release hydrochlorothiazide 50 mg tablet 50 mg PO DAILY 03/04/22 03/04/22 History icosapent ethyl 1 gram capsule 2 g PO BID 03/04/22 03/04/22 History (Vascepa) insulin glargine 100 unit/mL (3 30 unit subcut QPM 03/04/22 03/04/22 History mL) subcutaneous pen (Lantus Solostar U-100 Insulin) levothyroxine 50 mcg tablet 50 mcg PO DAILYBB 03/04/22 03/04/22 History spironolactone 50 mg tablet 50 mg PO DAILY 03/04/22 03/04/22 History Past Med/Surg History Medical History (Updated 03/04/22 @ 20:50 by Timoteo Ramires MD) Ambulatory dysfunction Depression Diabetes GERD (gastroesophageal reflux disease) Hypertension Hypothyroidism Memory deficit Tobacco use disorder Surgical History History of hysterectomy Social History Smoking Status: Current every day smoker Cigarettes Per Day: 20; Hx Alcohol Use: No Hx Substance Use: No Preferred Language: Ukrainian Communication Ability: Effective Hand Icer Required: No Beliefs That Will Affect Care: None marital status: Single Current Living Situation: Alone Other Information That Helps Us Care for You: No Feels Safe at Home: Yes Safety Concerns: Feels Safe At This Time Assistive Devices: Walker Review of Systems Review of Systems: All systems reviewed & are unremarkable except as noted in HPI & below Physical Exam Physical Exam: General: A&O to self and place only. NAD. Cooperative. HEENT: Atraumatic, normocephalic. Pulm: CTAB A&P. -wheezes, -rales, -rhonchi. Symmetrical chest rise. No increase work of breathing. No respiratory distress. Cardiac: RRR, -mrg. Radial pulses intact and symmetrical. Abdominal: soft, non-tender, non-distended, BS x 4 Skin: warm, dry, no rash Results & Data Results & Data ([facility]) Vital Signs (Past 12 Hours) Vital Signs Pulse Pulse Resp BP BP 03/04/22 17:22 76 18 144/83 H 03/04/22 17:15 76 18 144/83 H Supervising Physician Co-Signing Physician Notes Attending addendum: I have physically seen this patient, have supervised the medical residents activities, and agree with the H&P unless as otherwise noted. Assessment and Plan: Acute kidney injury- Creatinine 2.35 upon admission, with base 1.18 Status post 1 L normal saline bolus from the ED LR 125 mils per hour Daily renal function panel and magnesium level Hyperglycemia due to diabetes mellitus- Glucose 404 upon admission, reportedly was 592 at home Check hemoglobin A1c Continue home regimen of insulin glargine 15 units subcu twice daily Placed on Accu-Cheks before meals and at bedtime with NovoLog coverage per scale Dementia/memory deficit- Continue memantine nutrition services associate to assess suitability to return to current home environment, or whether other placement is needed Remaining orders and notations as noted Resident Activity Tracking Resident Involvement: Resident Care Provided Care Provided: Adult Hospital Medicine (1) Buttock wound Encounter type: initial encounter Laterality: left Qualified Code(s): S31.829A - Unspecified open wound of left buttock, initial encounter
[2022-03-04 20:56] LABS: Base Excess VBG -6.7 mEq/L; HCO3 VBG 19 mmol/L; Oxygen Saturation VBG 69.7 %; PCO2 VBG 39 mmHg (38-50); PO2 VBG 38 mmHg
[2022-03-04] MEDS: MAGNESIUM SULFATE / D5W 1 GM/100 ML BAG IV SCH (22:36)
[2022-03-04] MEDS ORDERED: ACETAMINOPHEN 325 MG TAB PO PRN (23:32)
[2022-03-04] MEDS ORDERED: GLUCAGON FOR INJ 1 MG VIAL SQ PRN (23:32)
[2022-03-04] MEDS ORDERED: NYSTATIN POWDER 15GM BTL EXT PRN (23:32)
[2022-03-04] MEDS ORDERED: DEXTROSE 50% 50 ML SYRINGE IV PRN (23:32)
[2022-03-04] MEDS ORDERED: GLUCOSE 40% GEL 15 GM TUBE PO PRN (23:32)
[2022-03-04] MEDS ORDERED: ONDANSETRON INJ 2 MG/ML 2 ML VIAL IV PRN (23:32)
[2022-03-04] MEDS ORDERED: POLYETHYLENE (MIRALAX) 17 GM PACK PO PRN (23:32)
[2022-03-04] MEDS ORDERED: CARBOHYDRATES FOR HYPOGLYCEMIA PO PRN (23:32)
[2022-03-04] MEDS ORDERED: GLUCOSE 10 TAB/TUBE PO PRN (23:32)
[2022-03-04] MEDS ORDERED: POLYETHYLENE (MIRALAX) 17 GM PACK PO STA (23:32)
[2022-03-05 00:17] LABS: Thyroid Stimulating Hormone 2.997 uIu/ml (0.300-4.500)
[2022-03-05 00:19] LABS: T4 Free Thyroxine 0.89 ng/dl (0.61-1.60)
[2022-03-05] MEDS: INSULIN ASPART PER UNIT SC SCH ×5 (00:19→20:52)
[2022-03-05] MEDS: LACTATED RINGER'S 1,000 ML IV SCH ×3 (00:20→16:55)
[2022-03-05] MEDS: LANTUS PER UNIT CHARGE SQ SCH ×3 (00:20→20:52)
[2022-03-05] MEDS: MAGNESIUM SULFATE / D5W 1 GM/100 ML BAG IV SCH ×2 (00:20→02:30)
[2022-03-05] MEDS: HEPARIN SOD 5,000 UNIT/0.5 ML VIAL SQ SCH ×2 (00:27→08:37)
[2022-03-05] MEDS: hydrALAZINE HCL 25 MG TAB PO SCH ×4 (00:27→20:48)
[2022-03-05] MEDS: ATORVASTATIN 40 MG TAB PO SCH ×2 (00:28→20:48)
[2022-03-05] MEDS: AMITRIPTYLINE HCL 50 MG TAB PO SCH ×2 (00:28→20:48)
[2022-03-05] MEDS: CHOLESTYRAMINE LIGHT 4 GM PKT PO SCH ×3 (00:29→19:17)
[2022-03-05 06:37] LABS: Hematocrit (blood only) 31.6 % (34.1-44.9); Hemoglobin 10.9 g/dl (12.0-16.0); Mean Corpuscular Hemoglobin 29.5 pg (25.0-34.0); Mean Corpuscular Hgb Conc 34.5 g/dL (32.0-36.0); Mean Corpuscular Volume 85.4 fL (80.0-100.0); Mean Platelet Volume 9.3 fL (9.4-12.3); Platelet Count 331 K/uL (130-400); RDW Standard Deviation 43.6 fL (36.4-46.3); White Blood Count 10.46 K/ul (4.8-10.8)
[2022-03-05 06:38] LABS: Base Excess VBG -6.2 mEq/L; HCO3 VBG 20 mmol/L; Oxygen Saturation VBG 91.5 %; PCO2 VBG 39 mmHg (38-50); PO2 VBG 59 mmHg; pH VBG 7.31 (7.36-7.41)
[2022-03-05 07:03] LABS: BUN Creatinine Ratio 26.1 (10-20); Calcium 9.1 mg/dl (8.5-10.1); Creatinine Clr Calc Pharmacy 26.4 ml/min; Est GFR (African American) 30.8 ml/min; Est GFR (Non-African American) 26.6 ml/min; Magnesium 2.4 mg/dl (1.7-2.4); Potassium 4.6 mmol/L (3.5-5.1)
[2022-03-05 07:04] LABS: Eosinophils # (auto) 0.13 K/uL (0-0.50); Eosinophils % (auto) 1.2 %; Immature Granulocytes # (auto) 0.03 K/uL (0.00-0.02); Immature Granulocytes % (auto) 0.3 %; Lymphocytes # (auto) 5.56 K/uL (1.2-3.4); Lymphocytes % (auto) 53.2 %; Monocytes # (auto) 0.79 K/uL (0.24-0.82); Monocytes % (auto) 7.6 %; Neutrophils # (auto) 3.85 K/uL (1.4-6.5); Neutrophils % (auto) 36.7 %
[2022-03-05 07:38] LABS: Estimated Average Glucose 283 mg/dl; Hemoglobin A1C 11.5 % (4.5-5.6)
[2022-03-05] MEDS: NICOTINE 21 MG/24 HR TDSY TD SCH (08:42)
[2022-03-05] MEDS: MEMANTINE HCL 5 MG TAB PO SCH (08:44)
[2022-03-05] MEDS: PANTOprazole 40 MG TAB PO SCH (08:44)
[2022-03-05] MEDS: ASPIRIN 81 MG ECTAB PO SCH (08:45)
[2022-03-05] MEDS ORDERED: ENOXAPARIN INJ 30 MG/0.3 ML SYR SQ SCH (09:45)
[2022-03-05] MEDS ORDERED: DIPHENOXYLATE/ATROPINE 2.5/0.025MG TAB PO PRN (16:16)
--- NOTE | 2022-03-05 17:25 | Hospitalist Progress Note ---
Date of Service March 05, 2022 Assessment & Plan (1) Acute hyperglycemia: Plan: Dietary noncompliance likely contributing, poor control; current regimen seems reasonablecontinue; May have low-grade DKA with volume and subcutaneous insulin (2) Acute kidney injury: Plan: Likely hypovolemia, improvingcontinue volume (3) Memory deficit: Plan: On memantinecontinue (4) Hypertension: Plan: Pressures fluctuating, at times high; later parameters are betterobserve, no change at present (5) Buttock wound: Plan: Wound care (6) GERD (gastroesophageal reflux disease): Plan: Continue PPI Plan Hypomagnesemiareplace Report of constipation and diarrheawhile diabetic diarrhea certainly possible, could be pseudo diarrhea; x-ray KUB Admission and Anticipated Discharge Date Admission Date: March 04, 2022 Subjective Follow-up of presentation with elevated blood sugar, weaknessprimary complaint is weakness; later she did complain of loose bowel movements Physical Exam Physical Exam: Constitutional and general: No acute distress, looks biologic age Head and face: No puffiness, atraumatic Eyes: No scleral icterus, extraocular movements normal Neck: Supple, no JVD Musculoskeletal: No acute joint swelling, no bony abnormalities Skin/dermatologic/integument: No rash, no purpura Hematologic and lymphatic: pallor +, no petechia Gastrointestinal/abdomen: Nondistended, soft, nonacute Neurologic: Cranial nerves intact, nonfocal Psychiatry: Awake, alert, pleasant, communicative Cardiovascular: Heart rhythm regular, no rub, no murmur, no gallop Respiratory: Chest movements equal, no use of accessory muscles, no adventitious sounds Extremities: No edema, no cyanosis Results & Data Results & Data ([facility]) Vital Signs (Past 12 Hours) Vital Signs Temp Pulse Resp BP Pulse Ox O2 Del Method 03/05/22 15:37 36.5 C 73 18 142/83 H 99 Room Air 03/05/22 07:35 36.4 C L 73 18 119/75 96 Room Air Laboratory Results Laboratory Results - last 24 hr 03/04/22 03/04/22 03/04/22 17:21 17:24 17:24 WBC 10.42 RBC 4.15 Hgb 12.1 Hct 35.6 MCV 85.8 MCH 29.2 MCHC 34.0 RDW Std Deviation 43.8 RDW Coeff of Julio 14.0 Plt Count 376 MPV 9.5 Immature Gran % (Auto) 0.4 Neut % (Auto) 44.2 Lymph % (Auto) 47.3 [place] % (Auto) 6.4 Eos % (Auto) 0.8 Baso % (Auto) 0.9 Neut # (Auto) 4.61 Lymph # (Auto) 4.93 H [place] # (Auto) 0.67 Eos # (Auto) 0.08 Baso # (Auto) 0.09 Immature Gran # (Auto) 0.04 H Blood Smear Review VBG pH VBG pCO2 VBG pO2 VBG HCO3 VBG O2 Saturation VBG Base Excess Sodium 131 L Potassium 4.8 Chloride 102 Carbon Dioxide 18 L Anion Gap 11 BUN 61 H Creatinine 2.35 H Est Cr Clr Drug Dosing 21.3 Est GFR ( Amer) 23.5 Est GFR (Non-Af Amer) 20.3 BUN/Creatinine Ratio 26.0 H Glucose 404 H* POC Glucose 393 H* Estimat Average Glucose Hemoglobin A1c Calcium 9.5 Magnesium Total Bilirubin 0.4 AST 31 ALT 31 Alkaline Phosphatase 132 H Total Protein 8.5 H Albumin 4.4 Globulin 4.1 H Albumin/Globulin Ratio 1.1 TSH Free T4 Hepatitis C Ab (EIA) Hep C Ab Signal/Cutoff SARS-CoV-2, RNA, NAAT Flow Cytometry Comment 03/04/22 03/04/22 03/04/22 17:24 17:24 18:24 WBC RBC Hgb Hct MCV MCH MCHC RDW Std Deviation RDW Coeff of Julio Plt Count MPV Immature Gran % (Auto) Neut % (Auto) Lymph % (Auto) [place] % (Auto) Eos % (Auto) Baso % (Auto) Neut # (Auto) Lymph # (Auto) [place] # (Auto) Eos # (Auto) Baso # (Auto) Immature Gran # (Auto) Blood Smear Review VBG pH VBG pCO2 VBG pO2 VBG HCO3 VBG O2 Saturation VBG Base Excess Sodium Potassium Chloride Carbon Dioxide Anion Gap BUN Creatinine Est Cr Clr Drug Dosing Est GFR ( Amer) Est GFR (Non-Af Amer) BUN/Creatinine Ratio Glucose POC Glucose 303 H* Estimat Average Glucose Hemoglobin A1c Calcium Magnesium Total Bilirubin AST ALT Alkaline Phosphatase Total Protein Albumin Globulin Albumin/Globulin Ratio TSH 2.997 Free T4 0.89 Hepatitis C Ab (EIA) Pending Hep C Ab Signal/Cutoff Pending SARS-CoV-2, RNA, NAAT Flow Cytometry Comment 03/04/22 03/04/22 03/04/22 20:03 20:42 20:42 WBC RBC Hgb Hct MCV MCH MCHC RDW Std Deviation RDW Coeff of Julio Plt Count MPV Immature Gran % (Auto) Neut % (Auto) Lymph % (Auto) [place] % (Auto) Eos % (Auto) Baso % (Auto) Neut # (Auto) Lymph # (Auto) [place] # (Auto) Eos # (Auto) Baso # (Auto) Immature Gran # (Auto) Blood Smear Review VBG pH 7.30 L VBG pCO2 39 VBG pO2 38 VBG HCO3 19 VBG O2 Saturation 69.7 VBG Base Excess -6.7 Sodium Potassium Chloride Carbon Dioxide Anion Gap BUN Creatinine Est Cr Clr Drug Dosing Est GFR ( Amer) Est GFR (Non-Af Amer) BUN/Creatinine Ratio Glucose POC Glucose Estimat Average Glucose Hemoglobin A1c Calcium Magnesium 1.5 L Total Bilirubin AST ALT Alkaline Phosphatase Total Protein Albumin Globulin Albumin/Globulin Ratio TSH Free T4 Hepatitis C Ab (EIA) Hep C Ab Signal/Cutoff SARS-CoV-2, RNA, NAAT NEGATIVE Flow Cytometry Comment 03/04/22 03/04/22 03/05/22 22:12 23:36 05:13 WBC RBC Hgb Hct MCV MCH MCHC RDW Std Deviation RDW Coeff of Julio Plt Count MPV Immature Gran % (Auto) Neut % (Auto) Lymph % (Auto) [place] % (Auto) Eos % (Auto) Baso % (Auto) Neut # (Auto) Lymph # (Auto) [place] # (Auto) Eos # (Auto) Baso # (Auto) Immature Gran # (Auto) Blood Smear Review VBG pH VBG pCO2 VBG pO2 VBG HCO3 VBG O2 Saturation VBG Base Excess Sodium Potassium Chloride Carbon Dioxide Anion Gap BUN Creatinine Est Cr Clr Drug Dosing Est GFR ( Amer) Est GFR (Non-Af Amer) BUN/Creatinine Ratio Glucose POC Glucose 181 H 254 H 192 H Estimat Average Glucose Hemoglobin A1c Calcium Magnesium Total Bilirubin AST ALT Alkaline Phosphatase Total Protein Albumin Globulin Albumin/Globulin Ratio TSH Free T4 Hepatitis C Ab (EIA) Hep C Ab Signal/Cutoff SARS-CoV-2, RNA, NAAT Flow Cytometry Comment 07/19/22 07/19/22 07/19/22 06:27 06:27 06:27 WBC 10.46 RBC 3.70 L Hgb 10.9 L Hct 31.6 L MCV 85.4 MCH 29.5 MCHC 34.5 RDW Std Deviation 43.6 RDW Coeff of Julio 14.0 Plt Count 331 MPV 9.3 L Immature Gran % (Auto) 0.3 Neut % (Auto) 36.7 Lymph % (Auto) 53.2 [place] % (Auto) 7.6 Eos % (Auto) 1.2 Baso % (Auto) 1.0 Neut # (Auto) 3.85 Lymph # (Auto) 5.56 H [place] # (Auto) 0.79 Eos # (Auto) 0.13 Baso # (Auto) 0.10 Immature Gran # (Auto) 0.03 H Blood Smear Review VBG pH VBG pCO2 VBG pO2 VBG HCO3 VBG O2 Saturation VBG Base Excess Sodium 135 L Potassium 4.6 Chloride 108 H Carbon Dioxide 19 L Anion Gap 8 BUN 49 H Creatinine 1.88 H D Est Cr Clr Drug Dosing 26.4 Est GFR ( Amer) 30.8 Est GFR (Non-Af Amer) 26.6 BUN/Creatinine Ratio 26.1 H Glucose 166 H POC Glucose Estimat Average Glucose 283 Hemoglobin A1c 11.5 H Calcium 9.1 Magnesium 2.4 Total Bilirubin AST ALT Alkaline Phosphatase Total Protein Albumin Globulin Albumin/Globulin Ratio TSH Free T4 Hepatitis C Ab (EIA) Hep C Ab Signal/Cutoff SARS-CoV-2, RNA, NAAT Flow Cytometry Comment 03/05/22 03/05/22 03/05/22 06:27 06:27 08:28 WBC RBC Hgb Hct MCV MCH MCHC RDW Std Deviation RDW Coeff of Julio Plt Count MPV Immature Gran % (Auto) Neut % (Auto) Lymph % (Auto) [place] % (Auto) Eos % (Auto) Baso % (Auto) Neut # (Auto) Lymph # (Auto) [place] # (Auto) Eos # (Auto) Baso # (Auto) Immature Gran # (Auto) Blood Smear Review VBG pH 7.31 L VBG pCO2 39 VBG pO2 59 VBG HCO3 20 VBG O2 Saturation 91.5 VBG Base Excess -6.2 Sodium Potassium Chloride Carbon Dioxide Anion Gap BUN Creatinine Est Cr Clr Drug Dosing Est GFR ( Amer) Est GFR (Non-Af Amer) BUN/Creatinine Ratio Glucose POC Glucose 181 H Estimat Average Glucose Hemoglobin A1c Calcium Magnesium Total Bilirubin AST ALT Alkaline Phosphatase Total Protein Albumin Globulin Albumin/Globulin Ratio TSH Free T4 Hepatitis C Ab (EIA) Hep C Ab Signal/Cutoff SARS-CoV-2, RNA, NAAT Flow Cytometry Comment Pending 03/05/22 03/05/22 12:05 16:57 WBC RBC Hgb Hct MCV MCH MCHC RDW Std Deviation RDW Coeff of Julio Plt Count MPV Immature Gran % (Auto) Neut % (Auto) Lymph % (Auto) [place] % (Auto) Eos % (Auto) Baso % (Auto) Neut # (Auto) Lymph # (Auto) [place] # (Auto) Eos # (Auto) Baso # (Auto) Immature Gran # (Auto) Blood Smear Review VBG pH VBG pCO2 VBG pO2 VBG HCO3 VBG O2 Saturation VBG Base Excess Sodium Potassium Chloride Carbon Dioxide Anion Gap BUN Creatinine Est Cr Clr Drug Dosing Est GFR ( Amer) Est GFR (Non-Af Amer) BUN/Creatinine Ratio Glucose POC Glucose 196 H 228 H Estimat Average Glucose Hemoglobin A1c Calcium Magnesium Total Bilirubin AST ALT Alkaline Phosphatase Total Protein Albumin Globulin Albumin/Globulin Ratio TSH Free T4 Hepatitis C Ab (EIA) Hep C Ab Signal/Cutoff SARS-CoV-2, RNA, NAAT Flow Cytometry Comment PG Care Time/CCT Total # of Minutes Spent Total Time Spent with Patient: Total time spent is greater than 50% in coordination of care (as documented) at patient's floor/unit and/or counseling patient: Coding Level of Care Code 99348 Subseq Hosp Care Lvl 2 Diagnoses Acute hyperglycemia R73.9 Acute kidney injury N17.9 Memory deficit R41.3 Hypertension I10 Buttock wound S31.829A Encounter type: initial encounter Laterality: left GERD (gastroesophageal reflux disease) K21.9 (1) Buttock wound Encounter type: initial encounter Laterality: left Qualified Code(s): S31.829A - Unspecified open wound of left buttock, initial encounter
--- NOTE | 2022-03-05 18:59 | XRay Report ---
KUB HISTORY: Constipation, possible pseudo diarrhea COMPARISON: None. FINDINGS: The bowel gas pattern is unremarkable. There are no dilated loops of small bowel to suggest an obstruction. No renal calculi. No ureteral calculi. Calcifications in the deep pelvis likely rep resent phleboliths. Small amount of well-formed stool seen within the colon. Degenerative changes wit hin the lower lumbar spine and bilateral sacroiliac joints. No pneumoperitoneum or pneumatosis. IMPRESSION: 1. No evidence for bowel obstruction. 2. Small amount of stool seen throughout the colon. ACT 112: Negative or not required by law. Electronically signed by: Les Freire M.D. 03/05/2022 6:58 PM
[2022-03-05] MEDS: ENOXAPARIN INJ 30 MG/0.3 ML SYR SQ SCH (20:49)
[2022-03-06] MEDS: LACTATED RINGER'S 1,000 ML IV SCH ×3 (00:59→17:27)
--- NOTE | 2022-03-06 05:06 | Billing Data ---
Date of Service March 06, 2022 Coding Level of Care Code 77610 Initial Inpt Care Lvl 3
[2022-03-06 06:14] LABS: Hematocrit (blood only) 27.7 % (34.1-44.9); Hemoglobin 9.3 g/dl (12.0-16.0); Mean Corpuscular Hemoglobin 29.2 pg (25.0-34.0); Mean Corpuscular Hgb Conc 33.6 g/dL (32.0-36.0); Mean Corpuscular Volume 86.8 fL (80.0-100.0); Mean Platelet Volume 9.5 fL (9.4-12.3); Platelet Count 280 K/uL (130-400); RDW Coefficient of Variation 13.9 % (11.5-14.5); Red Blood Count 3.19 M/uL (3.93-5.22); White Blood Count 8.77 K/ul (4.8-10.8)
[2022-03-06 06:38] LABS: Albumin Globulin Ratio 1.1 (0.9-2); Albumin Level 3.1 gm/dl (3.4-5.0); Bilirubin,Total 0.3 mg/dl (0.2-1.0); Calcium 8.4 mg/dl (8.5-10.1); Creatinine Clr Calc Pharmacy 28.4 ml/min; Est GFR (African American) 33.6 ml/min; Globulin 2.8 gm/dl (2.5-4.0); Magnesium 1.7 mg/dl (1.7-2.4); Potassium 4.7 mmol/L (3.5-5.1); Total Protein 5.9 gm/dl (6.0-8.3)
[2022-03-06 06:48] LABS: Basophils # (auto) 0.06 K/uL (0-0.2); Basophils % (auto) 0.7 %; Eosinophils # (auto) 0.12 K/uL (0-0.50); Eosinophils % (auto) 1.4 %; Immature Granulocytes # (auto) 0.02 K/uL (0.00-0.02); Immature Granulocytes % (auto) 0.2 %; Lymphocytes % (auto) 62.7 %; Monocytes % (auto) 6.8 %; Neutrophils # (auto) 2.47 K/uL (1.4-6.5); Neutrophils % (auto) 28.2 %
[2022-03-06] MEDS: INSULIN ASPART PER UNIT SC SCH ×4 (08:36→20:35)
[2022-03-06] MEDS: LANTUS PER UNIT CHARGE SQ SCH ×2 (08:37→20:35)
[2022-03-06] MEDS: NICOTINE 21 MG/24 HR TDSY TD SCH (08:42)
[2022-03-06] MEDS: hydrALAZINE HCL 25 MG TAB PO SCH ×3 (08:44→20:30)
[2022-03-06] MEDS: PANTOprazole 40 MG TAB PO SCH (08:45)
[2022-03-06] MEDS: MEMANTINE HCL 5 MG TAB PO SCH (08:45)
[2022-03-06] MEDS: ASPIRIN 81 MG ECTAB PO SCH (08:45)
[2022-03-06] MEDS: CHOLESTYRAMINE LIGHT 4 GM PKT PO SCH ×2 (08:46→20:39)
--- NOTE | 2022-03-06 16:55 | Hospitalist Progress Note ---
Date of Service March 06, 2022 Assessment & Plan (1) Hyperglycemia due to diabetes mellitus: Plan: Nonadherence likely contributing; sugars reasonable at present, no change for now (2) Acute kidney injury: Plan: Slowly improvingfollow (3) Memory deficit: Plan: Reported history of dementia. Appears to be at chronic baseline currently. I am concerned that patient is unable to care properly for herself at her apartment, although she thankfully does have help with iADLs from her niece who lives on her floor. - continue home Memantine (4) Ambulatory dysfunction: Plan: Suspect largely due to deconditioning in this elderly demented patient who is largely completely sedentary. - PT/OT consults placed - appreciate recs (5) Hypertension: Plan: Acceptableno change (6) Buttock wound: Plan: At present almost healednonactive issue (7) Hyperlipidemia: Plan: Continue home Atorvastatin (8) Fibromyalgia: Plan: continue home Amitriptyline (9) Sleep apnea: Plan: Does not tolerate CPAP (10) GERD (gastroesophageal reflux disease): Plan: Protonix per hospital formulary (11) Tobacco use disorder: Plan: 1ppd, 55 pack year history. - ordered nicotine patch - encourage cessation (12) Lymphocytosis: Plan: Could be low-grade CLL, flow cytometry pending; outpatient hematology Plan Mild metabolic acidosis, normal anion gap; mild hyponatremia can be followed. Admission and Anticipated Discharge Date Admission Date: March 04, 2022 Subjective Follow-up of presentation with elevated blood sugar, weaknessprimary complaint is weakness; doing better Physical Exam Physical Exam: Constitutional and general: No acute distress, looks biologic age Head and face: No puffiness, atraumatic Eyes: No scleral icterus, extraocular movements normal Neck: Supple, no JVD Musculoskeletal: No acute joint swelling, no bony abnormalities Skin/dermatologic/integument: No rash, no purpura Hematologic and lymphatic: pallor +, no petechia Gastrointestinal/abdomen: Nondistended, soft, nonacute Neurologic: Cranial nerves intact, nonfocal Psychiatry: Awake, alert, pleasant, communicative Cardiovascular: Heart rhythm regular, no rub, no murmur, no gallop Respiratory: Chest movements equal, no use of accessory muscles, no adventitious sounds Extremities: No edema, no cyanosis Results & Data Results & Data ([facility]) Vital Signs (Past 12 Hours) Vital Signs Temp Pulse Resp BP Pulse Ox O2 Del Method 03/06/22 15:48 36.6 C 72 18 116/79 96 03/06/22 08:02 Room Air 03/06/22 07:26 36.3 C L 68 18 127/79 99 Room Air PG Care Time/CCT Total # of Minutes Spent Total Time Spent with Patient: Total time spent is greater than 50% in coordination of care (as documented) at patient's floor/unit and/or counseling patient: Coding Level of Care Code 63489 Subseq Hosp Care Lvl 2 Diagnoses Hyperglycemia due to diabetes mellitus E11.65 Acute kidney injury N17.9 Memory deficit R41.3 Ambulatory dysfunction R26.2 Hypertension I10 Buttock wound S31.829A Encounter type: initial encounter Laterality: left Hyperlipidemia E78.5 Fibromyalgia M79.7 Sleep apnea G47.30 GERD (gastroesophageal reflux disease) K21.9 Tobacco use disorder F17.200 Lymphocytosis D72.820 (1) Buttock wound Encounter type: initial encounter Laterality: left Qualified Code(s): S31.829A - Unspecified open wound of left buttock, initial encounter
[2022-03-06] MEDS: AMITRIPTYLINE HCL 50 MG TAB PO SCH (20:30)
[2022-03-06] MEDS: ATORVASTATIN 40 MG TAB PO SCH (20:30)
[2022-03-06] MEDS: ENOXAPARIN INJ 30 MG/0.3 ML SYR SQ SCH (20:31)
[2022-03-07] MEDS: LACTATED RINGER'S 1,000 ML IV SCH ×3 (01:05→17:10)
[2022-03-07 06:07] LABS: Hematocrit (blood only) 26.8 % (34.1-44.9); Hemoglobin 9.1 g/dl (12.0-16.0); Mean Corpuscular Hemoglobin 29.3 pg (25.0-34.0); Mean Corpuscular Volume 86.2 fL (80.0-100.0); Mean Platelet Volume 9.2 fL (9.4-12.3); Platelet Count 267 K/uL (130-400); RDW Coefficient of Variation 14.1 % (11.5-14.5); RDW Standard Deviation 43.8 fL (36.4-46.3); Red Blood Count 3.11 M/uL (3.93-5.22); White Blood Count 9.31 K/ul (4.8-10.8)
[2022-03-07 06:43] LABS: Albumin Level 2.9 gm/dl (3.4-5.0); Bilirubin,Total 0.3 mg/dl (0.2-1.0); Calcium 8.3 mg/dl (8.5-10.1); Creatinine Clr Calc Pharmacy 32.5 ml/min; Est GFR (African American) 39.5 ml/min; Est GFR (Non-African American) 34.1 ml/min; Globulin 2.8 gm/dl (2.5-4.0); Magnesium 1.4 mg/dl (1.7-2.4); Phosphorus 2.8 mg/dl (2.5-4.9); Potassium 4.7 mmol/L (3.5-5.1); Total Protein 5.7 gm/dl (6.0-8.3)
[2022-03-07 06:44] LABS: Basophils # (auto) 0.05 K/uL (0-0.2); Basophils % (auto) 0.5 %; Eosinophils % (auto) 1.1 %; Immature Granulocytes # (auto) 0.01 K/uL (0.00-0.02); Immature Granulocytes % (auto) 0.1 %; Lymphocytes # (auto) 6.05 K/uL (1.2-3.4); Monocytes # (auto) 0.68 K/uL (0.24-0.82); Monocytes % (auto) 7.3 %; Neutrophils # (auto) 2.42 K/uL (1.4-6.5)
[2022-03-07] MEDS: NICOTINE 21 MG/24 HR TDSY TD SCH (08:56)
[2022-03-07] MEDS: ASPIRIN 81 MG ECTAB PO SCH (08:58)
[2022-03-07] MEDS: hydrALAZINE HCL 25 MG TAB PO SCH ×3 (08:58→21:45)
[2022-03-07] MEDS: MEMANTINE HCL 5 MG TAB PO SCH (08:59)
[2022-03-07] MEDS: PANTOprazole 40 MG TAB PO SCH (08:59)
[2022-03-07] MEDS: CHOLESTYRAMINE LIGHT 4 GM PKT PO SCH ×2 (09:00→21:52)
[2022-03-07] MEDS: LANTUS PER UNIT CHARGE SQ SCH ×2 (09:01→21:51)
[2022-03-07] MEDS: INSULIN ASPART PER UNIT SC SCH ×4 (09:02→21:52)
[2022-03-07] MEDS: MAGNESIUM SULFATE / D5W 1 GM/100 ML BAG IV SCH ×3 (10:19→14:34)
[2022-03-07] MEDS: MAGNESIUM OXIDE 400 MG TAB PO SCH ×2 (10:36→21:45)
--- NOTE | 2022-03-07 17:52 | Hospitalist Progress Note ---
Date of Service March 07, 2022 Assessment & Plan (1) Hyperglycemia due to diabetes mellitus: Plan: Nonadherence likely contributing; sugars reasonable at present, no change for now (2) Acute kidney injury: Plan: Slowly improvingfollow (3) Memory deficit: Plan: Reported history of dementia. Appears to be at chronic baseline currently. I am concerned that patient is unable to care properly for herself at her apartment, although she thankfully does have help with iADLs from her niece who lives on her floor. - continue home Memantine (4) Ambulatory dysfunction: Plan: Suspect largely due to deconditioning in this elderly demented patient who is largely completely sedentary. - PT/OT (5) Hypertension: Plan: Acceptableno change (6) Buttock wound: Plan: At present almost healednonactive issue (7) Hyperlipidemia: Plan: Continue home Atorvastatin (8) Fibromyalgia: Plan: continue home Amitriptyline (9) Sleep apnea: Plan: Does not tolerate CPAP (10) GERD (gastroesophageal reflux disease): Plan: Protonix per hospital formulary (11) Tobacco use disorder: Plan: 1ppd, 55 pack year history. - ordered nicotine patch - encourage cessation (12) Lymphocytosis: Plan: Could be low-grade CLL, flow cytometry pending; outpatient hematology Plan Mild metabolic acidosis, normal anion gap; mild hyponatremia can be followed. Admission and Anticipated Discharge Date Admission Date: Follow-up mild hyponatremia March 04, 2022 Subjective Follow-up of presentation with elevated blood sugar, weaknessprimary complaint is weakness; doing better Physical Exam Physical Exam: Constitutional and general: No acute distress, looks biologic age Head and face: No puffiness, atraumatic Eyes: No scleral icterus, extraocular movements normal Neck: Supple, no JVD Musculoskeletal: No acute joint swelling, no bony abnormalities Skin/dermatologic/integument: No rash, no purpura Hematologic and lymphatic: pallor +, no petechia Gastrointestinal/abdomen: Nondistended, soft, nonacute Neurologic: Cranial nerves intact, nonfocal Psychiatry: Awake, alert, pleasant, communicative Cardiovascular: Heart rhythm regular, no rub, no murmur, no gallop Respiratory: Chest movements equal, no use of accessory muscles, no adventitious sounds Extremities: No edema, no cyanosis Results & Data Results & Data ([facility]) Vital Signs (Past 12 Hours) Vital Signs Temp Pulse Resp BP Pulse Ox O2 Del Method 03/07/22 15:35 36.6 C 76 16 129/82 97 Room Air 03/07/22 07:48 36.5 C 75 16 105/64 98 Room Air Laboratory Results Laboratory Results - last 24 hr 03/05/22 03/06/22 03/07/22 06:27 20:24 05:50 WBC 9.31 RBC 3.11 L Hgb 9.1 L Hct 26.8 L MCV 86.2 MCH 29.3 MCHC 34.0 RDW Std Deviation 43.8 RDW Coeff of Julio 14.1 Plt Count 267 MPV 9.2 L Immature Gran % (Auto) 0.1 Neut % (Auto) 26.0 Lymph % (Auto) 65.0 [place] % (Auto) 7.3 Eos % (Auto) 1.1 Baso % (Auto) 0.5 Neut # (Auto) 2.42 Lymph # (Auto) 6.05 H [place] # (Auto) 0.68 Eos # (Auto) 0.10 Baso # (Auto) 0.05 Immature Gran # (Auto) 0.01 Sodium Potassium Chloride Carbon Dioxide Anion Gap BUN Creatinine Est Cr Clr Drug Dosing Est GFR ( Amer) Est GFR (Non-Af Amer) POC Glucose 194 H Fasting Glucose Calcium Phosphorus Magnesium Total Bilirubin AST ALT Alkaline Phosphatase Total Protein Albumin Globulin Albumin/Globulin Ratio Misc Genetic Test Pending 03/07/22 03/07/22 03/07/22 05:50 08:04 12:02 WBC RBC Hgb Hct MCV MCH MCHC RDW Std Deviation RDW Coeff of Julio Plt Count MPV Immature Gran % (Auto) Neut % (Auto) Lymph % (Auto) [place] % (Auto) Eos % (Auto) Baso % (Auto) Neut # (Auto) Lymph # (Auto) [place] # (Auto) Eos # (Auto) Baso # (Auto) Immature Gran # (Auto) Sodium 135 L Potassium 4.7 Chloride 112 H Carbon Dioxide 20 L Anion Gap 3 BUN 31 H Creatinine 1.53 H Est Cr Clr Drug Dosing 32.5 Est GFR ( Amer) 39.5 Est GFR (Non-Af Amer) 34.1 POC Glucose 92 135 H Fasting Glucose 82 Calcium 8.3 L Phosphorus 2.8 Magnesium 1.4 L Total Bilirubin 0.3 AST 19 ALT 17 Alkaline Phosphatase 79 Total Protein 5.7 L Albumin 2.9 L Globulin 2.8 Albumin/Globulin Ratio 1.0 Misc Genetic Test 03/07/22 17:04 WBC RBC Hgb Hct MCV MCH MCHC RDW Std Deviation RDW Coeff of Julio Plt Count MPV Immature Gran % (Auto) Neut % (Auto) Lymph % (Auto) [place] % (Auto) Eos % (Auto) Baso % (Auto) Neut # (Auto) Lymph # (Auto) [place] # (Auto) Eos # (Auto) Baso # (Auto) Immature Gran # (Auto) Sodium Potassium Chloride Carbon Dioxide Anion Gap BUN Creatinine Est Cr Clr Drug Dosing Est GFR ( Amer) Est GFR (Non-Af Amer) POC Glucose 210 H Fasting Glucose Calcium Phosphorus Magnesium Total Bilirubin AST ALT Alkaline Phosphatase Total Protein Albumin Globulin Albumin/Globulin Ratio Misc Genetic Test PG Care Time/CCT Total # of Minutes Spent Total Time Spent with Patient: Total time spent is greater than 50% in coordination of care (as documented) at patient's floor/unit and/or counseling patient: Coding Level of Care Code 03989 Subseq Hosp Care Lvl 2 Diagnoses Hyperglycemia due to diabetes mellitus E11.65 Acute kidney injury N17.9 Memory deficit R41.3 Ambulatory dysfunction R26.2 Hypertension I10 Buttock wound S31.829A Encounter type: initial encounter Laterality: left Hyperlipidemia E78.5 Fibromyalgia M79.7 Sleep apnea G47.30 GERD (gastroesophageal reflux disease) K21.9 Tobacco use disorder F17.200 Lymphocytosis D72.820 (1) Buttock wound Encounter type: initial encounter Laterality: left Qualified Code(s): S31.829A - Unspecified open wound of left buttock, initial encounter
[2022-03-07] MEDS: ATORVASTATIN 40 MG TAB PO SCH (21:44)
[2022-03-07] MEDS: AMITRIPTYLINE HCL 50 MG TAB PO SCH (21:44)
[2022-03-07] MEDS: ENOXAPARIN INJ 30 MG/0.3 ML SYR SQ SCH (21:44)
[2022-03-08] MEDS: LACTATED RINGER'S 1,000 ML IV SCH ×2 (00:47→08:34)
[2022-03-08 06:26] LABS: Hematocrit (blood only) 27.2 % (34.1-44.9); Hemoglobin 9.3 g/dl (12.0-16.0); Mean Corpuscular Hemoglobin 29.2 pg (25.0-34.0); Mean Corpuscular Hgb Conc 34.2 g/dL (32.0-36.0); Mean Corpuscular Volume 85.3 fL (80.0-100.0); Mean Platelet Volume 9.5 fL (9.4-12.3); Platelet Count 268 K/uL (130-400); RDW Coefficient of Variation 13.7 % (11.5-14.5); RDW Standard Deviation 43.1 fL (36.4-46.3); Red Blood Count 3.19 M/uL (3.93-5.22); White Blood Count 8.91 K/ul (4.8-10.8)
[2022-03-08 06:57] LABS: Albumin Globulin Ratio 1.1 (0.9-2); Bilirubin,Total 0.2 mg/dl (0.2-1.0); Calcium 8.6 mg/dl (8.5-10.1); Creatinine Clr Calc Pharmacy 30.5 ml/min; Est GFR (African American) 36.6 ml/min; Est GFR (Non-African American) 31.6 ml/min; Globulin 2.7 gm/dl (2.5-4.0); Magnesium 1.7 mg/dl (1.7-2.4); Phosphorus 3.1 mg/dl (2.5-4.9); Potassium 4.6 mmol/L (3.5-5.1); Total Protein 5.7 gm/dl (6.0-8.3)
[2022-03-08 07:30] LABS: Basophils # (auto) 0.08 K/uL (0-0.2); Basophils % (auto) 0.9 %; Eosinophils # (auto) 0.14 K/uL (0-0.50); Eosinophils % (auto) 1.6 %; Immature Granulocytes # (auto) 0.03 K/uL (0.00-0.02); Immature Granulocytes % (auto) 0.3 %; Lymphocytes # (auto) 4.94 K/uL (1.2-3.4); Lymphocytes % (auto) 55.4 %; Monocytes # (auto) 0.65 K/uL (0.24-0.82); Monocytes % (auto) 7.3 %; Neutrophils # (auto) 3.07 K/uL (1.4-6.5); Neutrophils % (auto) 34.5 %
[2022-03-08] MEDS: NICOTINE 21 MG/24 HR TDSY TD SCH (08:34)
[2022-03-08] MEDS: MEMANTINE HCL 5 MG TAB PO SCH (08:34)
[2022-03-08] MEDS: MAGNESIUM OXIDE 400 MG TAB PO SCH ×2 (08:34→20:56)
[2022-03-08] MEDS: ASPIRIN 81 MG ECTAB PO SCH (08:34)
[2022-03-08] MEDS: CHOLESTYRAMINE LIGHT 4 GM PKT PO SCH ×2 (08:34→20:54)
[2022-03-08] MEDS: PANTOprazole 40 MG TAB PO SCH (08:34)
[2022-03-08] MEDS: hydrALAZINE HCL 25 MG TAB PO SCH ×3 (08:34→20:56)
[2022-03-08] MEDS: INSULIN ASPART PER UNIT SC SCH ×4 (08:44→20:59)
[2022-03-08] MEDS: LANTUS PER UNIT CHARGE SQ SCH ×2 (08:47→20:58)
--- NOTE | 2022-03-08 11:35 | Ultrasound Report ---
ULTRASOUND KIDNEYS AND BLADDER CLINICAL HISTORY: Acute renal insufficiency. COMPARISON STUDY: Abdominal radiograph dated 03/05/2022. TECHNIQUE: Real-time, grayscale, and color flow sonography of the kidneys and bladder is performed. I mages are reviewed in the transverse and longitudinal planes. FINDINGS: Kidneys: The kidneys are normal in size and echotexture. The right kidney measures 11.4 x 5.0 x 7.2 c m and the left kidney measures 12.0 x 6.4 x 6.8 cm. There is no hydronephrosis. No shadowing renal c alculi are identified. A 9 mm echogenic focus in the interpolar right kidney may represent infiltrate d fat versus a tiny angiomyolipoma. There is no sonographic evidence of solid renal mass lesion. Trac e perinephric fluid is seen on the left. Bladder: The bladder is decompressed and not well assessed. IMPRESSION: 1. The kidneys are normal in size and without hydronephrosis. 2. The bladder was decompressed and not well assessed. ACT 112: Negative or not required by law. Electronically signed by: Mateo Rosario M.D. 03/08/2022 11:34 AM
[2022-03-08 11:39] LABS: Creatinine Urine Random 48.3 mg/dl; Protein Creatinine Ratio Urine 0.8 (0-0.2); Total Protein Urine Random 36.6 mg/dl (0-11.9)
[2022-03-08 15:50] LABS: Appearance Urine Clear (Clear); Bacteria Urine Automated 4+ (Negative); Bilirubin Urine Negative (Negative); Blood Urine Negative (Negative); Cast Urine Automated 0 /lpf (0-5); Color Urine Yellow; Epithelial Cell Urine Auto 0-5 /lpf (0-5); Glucose Urine UA Negative (Negative); Ketones Urine Negative (Negative); Leukocyte Esterase Urine 3+ (Negative); Nitrite Urine Negative (Negative); Protein Urine 1+ (Negative); RBC Urine Automated 0-4 /hpf (0-4); Specific Gravity Urine 1.009 (1.000-1.030); Urobilinogen Urine Negative (Negative); WBC Urine Automated >30 /hpf (0-5); pH Urine 5.5 (4.5-7.5)
--- NOTE | 2022-03-08 18:02 | Hospitalist Progress Note ---
Date of Service March 08, 2022 Assessment & Plan (1) Hyperglycemia due to diabetes mellitus: Plan: Nonadherence likely contributing; sugars reasonable at present, no change for now (2) Acute kidney injury: Plan: Not better; creatinine was in the low 1 range in December so this is certainly a new change; ultrasound no hydro; urinalysis not impressive but pyuria; treat for presumptive UTI and follow-up (3) Memory deficit: Plan: Reported history of dementia. Appears to be at chronic baseline currently. I am concerned that patient is unable to care properly for herself at her apartment, although she thankfully does have help with iADLs from her niece who lives on her floor. - continue home Memantine Cognitive deficit apparent (4) Ambulatory dysfunction: Plan: Suspect largely due to deconditioning in this elderly demented patient who is largely completely sedentary. - PT/OT (5) Hypertension: Plan: Acceptableno change (6) Buttock wound: Plan: At present almost healednonactive issue (7) Hyperlipidemia: Plan: Continue home Atorvastatin (8) Fibromyalgia: Plan: continue home Amitriptyline (9) Sleep apnea: Plan: Does not tolerate CPAP (10) GERD (gastroesophageal reflux disease): Plan: Protonix per hospital formulary (11) Tobacco use disorder: Plan: 1ppd, 55 pack year history. - ordered nicotine patch - encourage cessation (12) Lymphocytosis: Plan: Could be low-grade CLL, flow cytometry pending; outpatient hematology (13) UTI (urinary tract infection): Plan: Difficult to be certain given cognitive deficitbenefit of doubt and presumptive treatment; p.o. Keflex Plan Mild metabolic acidosis, normal anion gap-add base; Admission and Anticipated Discharge Date Admission Date: March 04, 2022 Subjective Follow-up of presentation with elevated blood sugar, weaknessprimary complaint is weakness; doing better Physical Exam Physical Exam: Constitutional and general: No acute distress, looks biologic age Head and face: No puffiness, atraumatic Eyes: No scleral icterus, extraocular movements normal Neck: Supple, no JVD Musculoskeletal: No acute joint swelling, no bony abnormalities Skin/dermatologic/integument: No rash, no purpura Hematologic and lymphatic: pallor +, no petechia Gastrointestinal/abdomen: Nondistended, soft, nonacute Neurologic: Cranial nerves intact, nonfocal Psychiatry: Awake, alert, pleasant, communicative Cardiovascular: Heart rhythm regular, no rub, no murmur, no gallop Respiratory: Chest movements equal, no use of accessory muscles, no adventitious sounds Extremities: No edema, no cyanosis Results & Data Results & Data ([facility]) Vital Signs (Past 12 Hours) Vital Signs Temp Pulse Resp BP Pulse Ox O2 Del Method 03/08/22 15:25 36.7 C 77 18 131/81 98 Room Air Laboratory Results Laboratory Results - last 24 hr 03/05/22 03/07/22 03/08/22 06:27 20:22 05:42 WBC 8.91 RBC 3.19 L Hgb 9.3 L Hct 27.2 L MCV 85.3 MCH 29.2 MCHC 34.2 RDW Std Deviation 43.1 RDW Coeff of Julio 13.7 Plt Count 268 MPV 9.5 Immature Gran % (Auto) 0.3 Neut % (Auto) 34.5 Lymph % (Auto) 55.4 [place] % (Auto) 7.3 Eos % (Auto) 1.6 Baso % (Auto) 0.9 Neut # (Auto) 3.07 Lymph # (Auto) 4.94 H [place] # (Auto) 0.65 Eos # (Auto) 0.14 Baso # (Auto) 0.08 Immature Gran # (Auto) 0.03 H Sodium Potassium Chloride Carbon Dioxide Anion Gap BUN Creatinine Est Cr Clr Drug Dosing Est GFR ( Amer) Est GFR (Non-Af Amer) POC Glucose 240 H Fasting Glucose Calcium Phosphorus Magnesium Total Bilirubin AST ALT Alkaline Phosphatase Total Protein Albumin Globulin Albumin/Globulin Ratio Urine Color Urine Appearance Urine pH Ur Specific [place] Urine Protein Urine Glucose (UA) Urine Ketones Urine Blood Urine Nitrite Urine Bilirubin Urine Urobilinogen Ur Leukocyte Esterase Urine WBC (Auto) Urine RBC (Auto) U Hyaline Cast (Auto) U Epithel Cells (Auto) Urine Bacteria (Auto) Ur Random Creatinine U Random Total Protein Protein/Creatinin Ratio Flow Cytometry Comment See Comment 03/08/22 03/08/22 03/08/22 05:42 08:29 11:00 WBC RBC Hgb Hct MCV MCH MCHC RDW Std Deviation RDW Coeff of Julio Plt Count MPV Immature Gran % (Auto) Neut % (Auto) Lymph % (Auto) [place] % (Auto) Eos % (Auto) Baso % (Auto) Neut # (Auto) Lymph # (Auto) [place] # (Auto) Eos # (Auto) Baso # (Auto) Immature Gran # (Auto) Sodium 136 Potassium 4.6 Chloride 112 H Carbon Dioxide 20 L Anion Gap 4 BUN 27 H Creatinine 1.63 H Est Cr Clr Drug Dosing 30.5 Est GFR ( Amer) 36.6 Est GFR (Non-Af Amer) 31.6 POC Glucose 86 Fasting Glucose 87 Calcium 8.6 Phosphorus 3.1 Magnesium 1.7 Total Bilirubin 0.2 AST 22 ALT 18 Alkaline Phosphatase 77 Total Protein 5.7 L Albumin 3.0 L Globulin 2.7 Albumin/Globulin Ratio 1.1 Urine Color Yellow Urine Appearance Clear Urine pH 5.5 Ur Specific [place] 1.009 Urine Protein 1+ H Urine Glucose (UA) Negative Urine Ketones Negative Urine Blood Negative Urine Nitrite Negative Urine Bilirubin Negative Urine Urobilinogen Negative Ur Leukocyte Esterase 3+ H Urine WBC (Auto) >30 H Urine RBC (Auto) 0-4 U Hyaline Cast (Auto) 0 U Epithel Cells (Auto) 0-5 Urine Bacteria (Auto) 4+ H Ur Random Creatinine U Random Total Protein Protein/Creatinin Ratio Flow Cytometry Comment 03/08/22 03/08/22 03/08/22 11:00 11:57 16:57 WBC RBC Hgb Hct MCV MCH MCHC RDW Std Deviation RDW Coeff of Julio Plt Count MPV Immature Gran % (Auto) Neut % (Auto) Lymph % (Auto) [place] % (Auto) Eos % (Auto) Baso % (Auto) Neut # (Auto) Lymph # (Auto) [place] # (Auto) Eos # (Auto) Baso # (Auto) Immature Gran # (Auto) Sodium Potassium Chloride Carbon Dioxide Anion Gap BUN Creatinine Est Cr Clr Drug Dosing Est GFR ( Amer) Est GFR (Non-Af Amer) POC Glucose 149 H 211 H Fasting Glucose Calcium Phosphorus Magnesium Total Bilirubin AST ALT Alkaline Phosphatase Total Protein Albumin Globulin Albumin/Globulin Ratio Urine Color Urine Appearance Urine pH Ur Specific [place] Urine Protein Urine Glucose (UA) Urine Ketones Urine Blood Urine Nitrite Urine Bilirubin Urine Urobilinogen Ur Leukocyte Esterase Urine WBC (Auto) Urine RBC (Auto) U Hyaline Cast (Auto) U Epithel Cells (Auto) Urine Bacteria (Auto) Ur Random Creatinine 48.3 U Random Total Protein 36.6 H Protein/Creatinin Ratio 0.8 H Flow Cytometry Comment PG Care Time/CCT Total # of Minutes Spent Total Time Spent with Patient: Total time spent is greater than 50% in coordination of care (as documented) at patient's floor/unit and/or counseling patient: Coding Level of Care Code 28238 Subseq Hosp Care Lvl 2 Diagnoses Hyperglycemia due to diabetes mellitus E11.65 Acute kidney injury N17.9 Memory deficit R41.3 Ambulatory dysfunction R26.2 Hypertension I10 Buttock wound S31.829A Encounter type: initial encounter Laterality: left Hyperlipidemia E78.5 Fibromyalgia M79.7 Sleep apnea G47.30 GERD (gastroesophageal reflux disease) K21.9 Tobacco use disorder F17.200 Lymphocytosis D72.820 UTI (urinary tract infection) N39.0 (1) Buttock wound Encounter type: initial encounter Laterality: left Qualified Code(s): S31.829A - Unspecified open wound of left buttock, initial encounter
[2022-03-08] MEDS: AMITRIPTYLINE HCL 50 MG TAB PO SCH (20:54)
[2022-03-08] MEDS: ATORVASTATIN 40 MG TAB PO SCH (20:55)
[2022-03-08] MEDS: cephALEXin 500 MG CAP PO SCH (20:55)
[2022-03-08] MEDS: ENOXAPARIN INJ 30 MG/0.3 ML SYR SQ SCH (20:56)
[2022-03-08] MEDS: SODIUM BICARBONATE 650 MG TAB PO SCH (20:57)
[2022-03-09 06:27] LABS: Hematocrit (blood only) 27.1 % (34.1-44.9); Hemoglobin 9.2 g/dl (12.0-16.0); Mean Corpuscular Hemoglobin 29.4 pg (25.0-34.0); Mean Corpuscular Hgb Conc 33.9 g/dL (32.0-36.0); Mean Corpuscular Volume 86.6 fL (80.0-100.0); Mean Platelet Volume 9.7 fL (9.4-12.3); Platelet Count 266 K/uL (130-400); RDW Standard Deviation 44.1 fL (36.4-46.3); Red Blood Count 3.13 M/uL (3.93-5.22); White Blood Count 9.75 K/ul (4.8-10.8)
[2022-03-09 06:55] LABS: Albumin Globulin Ratio 1.1 (0.9-2); Bilirubin,Total 0.2 mg/dl (0.2-1.0); Calcium 8.6 mg/dl (8.5-10.1); Creatinine Clr Calc Pharmacy 29.6 ml/min; Est GFR (African American) 35.3 ml/min; Est GFR (Non-African American) 30.5 ml/min; Globulin 2.7 gm/dl (2.5-4.0); Magnesium 1.4 mg/dl (1.7-2.4); Phosphorus 3.1 mg/dl (2.5-4.9); Potassium 4.5 mmol/L (3.5-5.1); Total Protein 5.7 gm/dl (6.0-8.3)
[2022-03-09 07:02] LABS: ALC (manual) 5.36 K/uL (1.2-3.4); Basophils % (manual) 1 %; Eosinophils % (manual) 1 %; Lymphocytes # (manual) 5.36 K/uL (1.2-3.4); Lymphocytes % (manual) 55 %; Monocytes % (manual) 2 %; Neutrophils % (manual) 42 %
[2022-03-09] MEDS: hydrALAZINE HCL 25 MG TAB PO SCH ×4 (07:48→21:04)
[2022-03-09] MEDS: PANTOprazole 40 MG TAB PO SCH (07:48)
[2022-03-09] MEDS: CHOLESTYRAMINE LIGHT 4 GM PKT PO SCH ×2 (07:48→21:05)
[2022-03-09] MEDS: cephALEXin 500 MG CAP PO SCH ×2 (07:48→21:04)
[2022-03-09] MEDS: ASPIRIN 81 MG ECTAB PO SCH (07:48)
[2022-03-09] MEDS: MAGNESIUM OXIDE 400 MG TAB PO SCH ×2 (07:48→21:05)
[2022-03-09] MEDS: MEMANTINE HCL 5 MG TAB PO SCH (07:48)
[2022-03-09] MEDS: SODIUM BICARBONATE 650 MG TAB PO SCH ×3 (07:48→21:05)
[2022-03-09] MEDS: NICOTINE 21 MG/24 HR TDSY TD SCH (07:49)
[2022-03-09] MEDS ORDERED: SODIUM PHOSPHATE 3 MMOL/1 ML INFUSION IV STA (09:31)
[2022-03-09] MEDS: INSULIN ASPART PER UNIT SC SCH ×4 (09:42→21:17)
[2022-03-09] MEDS ORDERED: SODIUM PHOSPHATE 30 MMOL in SODIUM CHLORIDE 0.9% 500 ML IV ONE (10:00)
[2022-03-09] MEDS: LANTUS PER UNIT CHARGE SQ SCH ×2 (10:21→21:17)
[2022-03-09] MEDS: MAGNESIUM SULFATE / D5W 1 GM/100 ML BAG IV SCH ×3 (12:12→16:08)
--- NOTE | 2022-03-09 17:02 | Hospitalist Progress Note ---
Date of Service March 09, 2022 Assessment & Plan (1) Hyperglycemia due to diabetes mellitus: Plan: Nonadherence likely contributing; sugars reasonable at present, no change for now (2) Acute kidney injury: Plan: Not better; creatinine was in the low 1 range in December so this is certainly a new change; ultrasound no hydro; urinalysis not impressive but pyuria; treat for presumptive UTI and follow (3) Memory deficit: Plan: Reported history of dementia. Appears to be at chronic baseline currently. I am concerned that patient is unable to care properly for herself at her apartment, although she thankfully does have help with iADLs from her niece who lives on her floor. - continue home Memantine Cognitive deficit apparent (4) Ambulatory dysfunction: Plan: Suspect largely due to deconditioning in this elderly demented patient who is largely completely sedentary. - PT/OT (5) Hypertension: Plan: Acceptableno change (6) Buttock wound: Plan: At present almost healednonactive issue (7) Hyperlipidemia: Plan: Continue home Atorvastatin (8) Fibromyalgia: Plan: continue home Amitriptyline (9) Sleep apnea: Plan: Does not tolerate CPAP (10) GERD (gastroesophageal reflux disease): Plan: Protonix per hospital formulary (11) Tobacco use disorder: Plan: 1ppd, 55 pack year history. - ordered nicotine patch - encourage cessation (12) Lymphocytosis: Plan: Flow cytometry does not appear shows any abnormalitiesconsider outpatient (13) UTI (urinary tract infection): Plan: Difficult to be certain given cognitive deficitbenefit of doubt and presumptive treatment; p.o. Keflex, noted GNRsensitivities pending Plan Mild metabolic acidosis, normal anion gap-added base; Hypomagnesemiareplace Admission and Anticipated Discharge Date Admission Date: March 04, 2022 Subjective Follow-up of presentation with elevated blood sugar, weaknessprimary complaint is weakness; doing better in this regard Physical Exam Physical Exam: Constitutional and general: No acute distress, looks biologic age Head and face: No puffiness, atraumatic Eyes: No scleral icterus, extraocular movements normal Neck: Supple, no JVD Musculoskeletal: No acute joint swelling, no bony abnormalities Skin/dermatologic/integument: No rash, no purpura Hematologic and lymphatic: pallor +, no petechia Gastrointestinal/abdomen: Nondistended, soft, nonacute Neurologic: Cranial nerves intact, nonfocal Psychiatry: Awake, alert, pleasant, communicative Cardiovascular: Heart rhythm regular, no rub, no murmur, no gallop Respiratory: Chest movements equal, no use of accessory muscles, no adventitious sounds Extremities: No edema, no cyanosis Results & Data Results & Data ([facility]) Vital Signs (Past 12 Hours) Vital Signs Temp Pulse Resp BP BP Pulse Ox O2 Del Method 03/09/22 15:34 36.6 C 77 16 145/82 H 98 Room Air 03/09/22 07:59 36.5 C 73 16 129/84 98 Room Air Laboratory Results Laboratory Results - last 24 hr 03/08/22 03/08/22 03/09/22 16:57 20:15 05:42 WBC 9.75 RBC 3.13 L Hgb 9.2 L Hct 27.1 L MCV 86.6 MCH 29.4 MCHC 33.9 RDW Std Deviation 44.1 RDW Coeff of Julio 14.0 Plt Count 266 MPV 9.7 Neutrophils % (Manual) 42 Lymphocytes % (Manual) 55 Monocytes % (Manual) 2 Eosinophils % (Manual) 1 Basophils % (Manual) 1 Neutrophils # (Manual) 4.10 Total Absolute Neuts 4.10 Lymphocytes # (Manual) 5.36 H Total Abs Lymphocytes 5.36 H Monocytes # (Manual) 0.20 L Eosinophils # (Manual) 0.10 Basophils # (Manual) 0.10 Sodium Potassium Chloride Carbon Dioxide Anion Gap BUN Creatinine Est Cr Clr Drug Dosing Est GFR ( Amer) Est GFR (Non-Af Amer) POC Glucose 211 H 164 H Fasting Glucose Calcium Phosphorus Magnesium Total Bilirubin AST ALT Alkaline Phosphatase Total Protein Albumin Globulin Albumin/Globulin Ratio 03/09/22 03/09/22 03/09/22 05:42 07:41 11:51 WBC RBC Hgb Hct MCV MCH MCHC RDW Std Deviation RDW Coeff of Julio Plt Count MPV Neutrophils % (Manual) Lymphocytes % (Manual) Monocytes % (Manual) Eosinophils % (Manual) Basophils % (Manual) Neutrophils # (Manual) Total Absolute Neuts Lymphocytes # (Manual) Total Abs Lymphocytes Monocytes # (Manual) Eosinophils # (Manual) Basophils # (Manual) Sodium 136 Potassium 4.5 Chloride 111 H Carbon Dioxide 20 L Anion Gap 5 BUN 26 H Creatinine 1.68 H Est Cr Clr Drug Dosing 29.6 Est GFR ( Amer) 35.3 Est GFR (Non-Af Amer) 30.5 POC Glucose 82 150 H Fasting Glucose 74 Calcium 8.6 Phosphorus 3.1 Magnesium 1.4 L Total Bilirubin 0.2 AST 23 ALT 18 Alkaline Phosphatase 74 Total Protein 5.7 L Albumin 3.0 L Globulin 2.7 Albumin/Globulin Ratio 1.1 03/09/22 16:45 WBC RBC Hgb Hct MCV MCH MCHC RDW Std Deviation RDW Coeff of Julio Plt Count MPV Neutrophils % (Manual) Lymphocytes % (Manual) Monocytes % (Manual) Eosinophils % (Manual) Basophils % (Manual) Neutrophils # (Manual) Total Absolute Neuts Lymphocytes # (Manual) Total Abs Lymphocytes Monocytes # (Manual) Eosinophils # (Manual) Basophils # (Manual) Sodium Potassium Chloride Carbon Dioxide Anion Gap BUN Creatinine Est Cr Clr Drug Dosing Est GFR ( Amer) Est GFR (Non-Af Amer) POC Glucose 185 H Fasting Glucose Calcium Phosphorus Magnesium Total Bilirubin AST ALT Alkaline Phosphatase Total Protein Albumin Globulin Albumin/Globulin Ratio PG Care Time/CCT Total # of Minutes Spent Total Time Spent with Patient: Total time spent is greater than 50% in coordination of care (as documented) at patient's floor/unit and/or counseling patient: Coding Level of Care Code 98163 Subseq Hosp Care Lvl 2 Diagnoses Hyperglycemia due to diabetes mellitus E11.65 Acute kidney injury N17.9 Memory deficit R41.3 Ambulatory dysfunction R26.2 Hypertension I10 Buttock wound S31.829A Encounter type: initial encounter Laterality: left Hyperlipidemia E78.5 Fibromyalgia M79.7 Sleep apnea G47.30 GERD (gastroesophageal reflux disease) K21.9 Tobacco use disorder F17.200 Lymphocytosis D72.820 UTI (urinary tract infection) N39.0 (1) Buttock wound Encounter type: initial encounter Laterality: left Qualified Code(s): S31.829A - Unspecified open wound of left buttock, initial encounter
[2022-03-09] MEDS ORDERED: MELATONIN 3 MG TAB PO PRN (19:56)
[2022-03-09] MEDS: ATORVASTATIN 40 MG TAB PO SCH (21:04)
[2022-03-09] MEDS: AMITRIPTYLINE HCL 50 MG TAB PO SCH (21:04)
[2022-03-09] MEDS: ENOXAPARIN INJ 30 MG/0.3 ML SYR SQ SCH (21:04)
[2022-03-09] MEDS ORDERED: diphenhydrAMINE 50 MG/ML VIAL IV STA (22:23)
[2022-03-09] MEDS ORDERED: diphenhydrAMINE 50 MG/ML VIAL ONE (22:32)
[2022-03-10 06:21] LABS: Hematocrit (blood only) 27.8 % (34.1-44.9); Hemoglobin 9.3 g/dl (12.0-16.0); Mean Corpuscular Hemoglobin 28.8 pg (25.0-34.0); Mean Corpuscular Hgb Conc 33.5 g/dL (32.0-36.0); Mean Corpuscular Volume 86.1 fL (80.0-100.0); Mean Platelet Volume 9.5 fL (9.4-12.3); Platelet Count 259 K/uL (130-400); Red Blood Count 3.23 M/uL (3.93-5.22); White Blood Count 9.81 K/ul (4.8-10.8)
[2022-03-10 06:46] LABS: Albumin Globulin Ratio 1.2 (0.9-2); Albumin Level 3.1 gm/dl (3.4-5.0); Bilirubin,Total 0.3 mg/dl (0.2-1.0); Calcium 8.8 mg/dl (8.5-10.1); Creatinine Clr Calc Pharmacy 35.8 ml/min; Est GFR (African American) 44.4 ml/min; Est GFR (Non-African American) 38.3 ml/min; Globulin 2.6 gm/dl (2.5-4.0); Magnesium 1.9 mg/dl (1.7-2.4); Phosphorus 3.8 mg/dl (2.5-4.9); Potassium 4.9 mmol/L (3.5-5.1); Total Protein 5.7 gm/dl (6.0-8.3)
[2022-03-10 07:04] LABS: Basophils # (auto) 0.07 K/uL (0-0.2); Basophils % (auto) 0.7 %; Eosinophils # (auto) 0.13 K/uL (0-0.50); Eosinophils % (auto) 1.3 %; Immature Granulocytes # (auto) 0.02 K/uL (0.00-0.02); Immature Granulocytes % (auto) 0.2 %; Monocytes % (auto) 6.1 %; Neutrophils # (auto) 3.59 K/uL (1.4-6.5); Neutrophils % (auto) 36.7 %
[2022-03-10] MEDS: ASPIRIN 81 MG ECTAB PO SCH (07:25)
[2022-03-10] MEDS: PANTOprazole 40 MG TAB PO SCH (07:25)
[2022-03-10] MEDS: MEMANTINE HCL 5 MG TAB PO SCH (07:26)
[2022-03-10] MEDS: NICOTINE 21 MG/24 HR TDSY TD SCH (07:26)
[2022-03-10] MEDS: SODIUM BICARBONATE 650 MG TAB PO SCH ×3 (07:26→20:54)
[2022-03-10] MEDS: MAGNESIUM OXIDE 400 MG TAB PO SCH ×2 (07:26→20:52)
[2022-03-10] MEDS: hydrALAZINE HCL 25 MG TAB PO SCH ×3 (07:26→20:53)
[2022-03-10] MEDS: cephALEXin 500 MG CAP PO SCH ×2 (07:26→20:53)
[2022-03-10] MEDS: INSULIN ASPART PER UNIT SC SCH ×4 (08:51→20:59)
[2022-03-10] MEDS: LANTUS PER UNIT CHARGE SQ SCH ×2 (08:52→20:59)
[2022-03-10] MEDS: CHOLESTYRAMINE LIGHT 4 GM PKT PO SCH ×2 (10:30→22:00)
--- NOTE | 2022-03-10 12:54 | Discharge Summary ---
Date of Service March 10, 2022 Admission HPI Per Admitting Provider Syl Hall is a 71yo female with PMHx significant for uncontrolled T2DM (A1c 11.6 on 12/31/2021), HTN, HLD, SEEMA (does not tolerate CPAP), GERD, fibromyalgia and dementia who presented to [facility] ED on 03/04 for hyperglycemia. Patient reportedly took BSG ~1 hour after eating cake, fried chicken and bhutanese fries, and it was elevated at 592. Patient denies associated lightheadedness/dizziness, polydipsia, polyuria, N/V, or abdominal pain. Reports that she usually only eats twice per day, takes NovoLog 12 units before meals, and takes Lantus 30 units before bed. Does not always check BSG every day but when she does usually gets low-to-mid 200s. Patient does not have clear memory of what has happened before the last 1-2 days - this appears to be baseline per previous evaluations here. She was able to tell me that she was in a "hospital here, that is not [facility]" for a buttock abscess - of note she was admitted at [facility] for several days in 12/2021 for the buttock abscess. She states that she sometimes misses medication doses and did not take any medications this morning. Also reports chronically poor fluid intake - drinks mostly Gatorade but not much water or other fluids. Patient lives on her own in an apartment. Her sister and niece live on the same floor as her and her niece helps her with iADLs, but she does report chronically progressive weakness. Mostly sits on the couch all day over the last several months and is finding it more difficult to ambulate around her apartment with a walker. Denies falls. In the ED the patient was hemodynamically stable on room air. Labs significant for Na 131, BSG 404 (corrected Na 138). BUN 61/Cr 2.35 (baseline 1.1). HCO3 18 (baseline). AG 11. K 4.8. Patient received NSS 1L bolus. BSG improved to 303 without insulin. Principal Diagnosis Uncontrolled diabetes mellitus Discharge Exam No acute distress Abdomen benign No change in exam Vital Signs Temp Pulse Resp BP BP Pulse Ox O2 Del Method 03/10/22 06:42 36.3 C L 70 16 124/71 96 Room Air 03/09/22 22:06 36.3 C L 73 17 137/73 95 Room Air 03/09/22 15:34 36.6 C 77 16 145/82 H 98 Room Air Intake and Output 03/09/22 03/10/22 03/10/22 22:59 06:59 14:59 Intake Total 187.5 / 581.5 Output Total 200 / 550 Balance -12.5 / 31.5 Intake: IV 187.5 / 341.5 Magnesium Sulfate / D5w 1 gm In 187.5 / 287.5 100 ml @ 50 mls/hr IV Q2H [facility] Rx#:[id number] Output: Urine 200 / 550 Other: # Unmeasured Voids 1 1 Discharge Data Allergies Allergy/AdvReac Type Severity Reaction Status Date / Time amlodipine Allergy Severe SHORT OF Verified 03/04/22 22:32 BREATH adhesive Allergy Intermediate ITCHY RASH Verified 03/04/22 22:32 buspirone [From BuSpar] Allergy Unknown CAN'T Verified 03/04/22 22:32 REMEMBER duloxetine [From Cymbalta] Allergy Unknown CAN'T Verified 03/04/22 22:32 REMEMBER Penicillins AdvReac Intermediate Vomiting Verified 03/04/22 22:32 Consultations 03/04/22 18:26 ED Decision to Admit Stat Ordered Studies 03/08/22 09:15 US renal/blad retro comp Urgent Diabetes Follow up Diabetes Follow-up Needed for HgbA1c >9% Hospital Course (1) Hyperglycemia due to diabetes mellitus: Currently sugars in good range but much lower insulin requirement at at home; therefore, likely nonadherence/dietary indiscretion contributing Cognitive deficit of concern; patient does not want to go to facility, long discussion with family member (niece)she does not want patient to go to facility Difficult situationwith careful thought, currently it is premature to consider placement; in any case, might be challenging since not indicated from therapy perspective Cautiously: Same dose of Lantus along with sliding scale; off thiazide that might help hyperglycemia If fails then may have to reconsider (2) Acute kidney injury: Improvedfollow as outpatient; requested nephrology follow (3) Memory deficit: Reported history of dementia. Appears to be at chronic baseline currently. I am concerned that patient is unable to care properly for herself at her apartment, although she thankfully does have help with iADLs from her niece who lives on her floor. - continue home Memantine Cognitive deficit apparent Family does not desire placement at [facility]; spoke to niece and they will assist and has home health in place; currently this is the best option; if fails, will have to reconsider (4) Hypertension: Pressures in reasonable range; continue home hydralazine; stopped thiazide, stopped spironolactone - follow (5) Buttock wound: At present almost healednonactive issue (6) Hyperlipidemia: Continue home Atorvastatin (7) Fibromyalgia: continue home Amitriptyline (8) Sleep apnea: Does not tolerate CPAP (9) GERD (gastroesophageal reflux disease): ct PPI (10) Tobacco use disorder: 1ppd, 55 pack year history. - ordered nicotine patch - encourage cessation (11) Lymphocytosis: Flow cytometry does not appear shows any abnormalitiesOutpatient hematology (12) UTI (urinary tract infection): Difficult to be certain given cognitive deficitbenefit of doubt and presumptive treatment; p.o. Keflex, noted Klebsiellafinish course of Keflex (13) Anemia: More or less stablefollow as outpatient Plan Consult sent to case management for PCP appointment within a week. Total Time Total Time Spent Total Time Spent (In Minutes): 45 Discharge Plan Discharge Items Patient Disposition: Home - Home Health Services Reason For Visit: KYLAH, HYPERGLYCEMIA Discharge Diagnosis: Uncontrolled diabetes mellitus Activity: Resume your previous activity Non-emergency contact: Primary Care Provider Call non-emergency contact if: you have any medication questions and your symptoms worsen Follow-up/Referrals: Fernanda Zhang [Emergency Nurse] - (Anxiety, history of dementia) Tim Cage MD [Physician] - (Uncontrolled DM) Charles Sy DO [Physician] - (Acute kidney injury, early eval please) Melodie Antunez PA-C [Primary Care Provider] - Cira Gaspar MD [Physician] - (Lymphocytosis) Diet: Carb Consistent or DM2 and Heart Healthy Addtl Attending Provider Instructions: Strictly follow diabetic diet Check blood sugar before meals and at bedtime and use the following sliding scale and take NovoLog according to the following scale Blood sugar less than 140- zero units of insulin Blood sugar 141 to 180 -1 unit of insulin Blood sugar 181 to 220 -3 units of insulin Blood sugar 221 to 260 -5 units of insulin Blood sugar 261 to 300- 7 units of insulin Blood sugar 301 to 340- 9 units of insulin Blood sugar 341 to 380- 11 units of insulin Blood sugar more than 380 call Follow-up with your primary care doctor in 1 week Pending Studies at Discharge: No Stand-Alone Forms: My [facility], Smoking Cessation Medications and DC Order Prescriptions: New polyethylene glycol 3350 [Miralax] 17 gram Powder In Packet 17 g PO DAILY PRN (Reason: constipation) Qty: 30 0RF magnesium oxide 400 mg (241.3 mg magnesium) Tablet 800 mg PO BID Qty: 120 0RF cephalexin 500 mg Capsule 500 mg PO BID Qty: 10 0RF insulin aspart U-100 [Novolog Flexpen U-100 Insulin] 100 unit/mL (3 mL) insulin pen 1 sliding scale dose subcut USEASDIRECTD Qty: 15 0RF Rx Instructions: Check blood sugar before meals and at bedtime: blood sugar less than 140- zero units of insulin Blood sugar 141 to 180 -1 unit of insulin Blood sugar 181 to 220 -3 units of insulin Blood sugar 221 to 260 -5 units of insulin Blood sugar 261 to 300- 7 units of insulin Blood sugar 301 to 340- 9 units of insulin Blood sugar 341 to 380- 11 units of insulin Blood sugar more than 380 call insulin glargine [Lantus Solostar U-100 Insulin] 100 unit/mL (3 mL) insulin pen 15 unit subcut BID Qty: 15 0RF Continued atorvastatin 40 mg Tablet 40 mg PO HS hydralazine 25 mg Tablet 25 mg PO TID amitriptyline 50 mg Tablet 100 mg PO HS omeprazole 20 mg Capsule,Delayed Release(Dr/Ec) 20 mg PO DAILY nystatin 100,000 unit/gram Powder 1 applic TOPICAL BID PRN (Reason: Skin Irritation) ketoconazole 2 % Cream 1 applic TOPICAL BID Rx Instructions: APPLY TO AFFECTED AREA (GROIN) cholestyramine (with sugar) 4 gram Powder 4 g PO BID memantine 5 mg Tablet 5 mg PO QAM Farxiga 10 mg Tablet 10 mg PO DAILY levothyroxine 50 mcg tablet 50 mcg PO DAILYBB icosapent ethyl [Vascepa] 1 gram capsule 2 g PO BID insulin glargine [Lantus Solostar U-100 Insulin] 100 unit/mL (3 mL) insulin pen 30 unit SUBCUT QPM Qty: 15 0RF Discontinued insulin aspart U-100 100 unit/mL Solution 12 unit SUBCUT TIDM hydrochlorothiazide 50 mg tablet 50 mg PO DAILY spironolactone 50 mg tablet 50 mg PO DAILY Discharge Orders: Discharge Order (Routine); Ordered 03/10/22 Ordered By: Ana Sherman Admission Data Admit Date/Time: 03/04/22 20:18 Attending Provider: Ana Sherman Admit Provider: Timoteo Ramires Primary Care Provider: Melodie Antunez Other Providers: Ryne Davenport ; [facility] Coding Level of Care Code D/C DAY MANAGEMENT >30 MINS Diagnoses Hyperglycemia due to diabetes mellitus E11.65 Acute kidney injury N17.9 Memory deficit R41.3 Hypertension I10 Buttock wound S31.829A Encounter type: initial encounter Laterality: left Hyperlipidemia E78.5 Fibromyalgia M79.7 Sleep apnea G47.30 GERD (gastroesophageal reflux disease) K21.9 Tobacco use disorder F17.200 Lymphocytosis D72.820 UTI (urinary tract infection) N39.0 Anemia D64.9
[2022-03-10] MEDS: ENOXAPARIN INJ 30 MG/0.3 ML SYR SQ SCH (20:51)
[2022-03-10] MEDS: AMITRIPTYLINE HCL 50 MG TAB PO SCH (20:52)
[2022-03-10] MEDS: ATORVASTATIN 40 MG TAB PO SCH (20:53)
[2022-03-11 05:44] LABS: Hematocrit (blood only) 27.9 % (34.1-44.9); Hemoglobin 9.3 g/dl (12.0-16.0); Mean Corpuscular Hemoglobin 29.2 pg (25.0-34.0); Mean Corpuscular Hgb Conc 33.3 g/dL (32.0-36.0); Mean Corpuscular Volume 87.5 fL (80.0-100.0); Mean Platelet Volume 9.5 fL (9.4-12.3); Platelet Count 254 K/uL (130-400); RDW Coefficient of Variation 14.1 % (11.5-14.5); RDW Standard Deviation 45.2 fL (36.4-46.3); Red Blood Count 3.19 M/uL (3.93-5.22); White Blood Count 7.64 K/ul (4.8-10.8)
[2022-03-11 06:08] LABS: Albumin Globulin Ratio 1.1 (0.9-2); Albumin Level 3.1 gm/dl (3.4-5.0); Bilirubin,Total 0.3 mg/dl (0.2-1.0); Calcium 8.7 mg/dl (8.5-10.1); Creatinine Clr Calc Pharmacy 38.8 ml/min; Est GFR (Non-African American) 42.3 ml/min; Globulin 2.7 gm/dl (2.5-4.0); Magnesium 1.7 mg/dl (1.7-2.4); Phosphorus 3.7 mg/dl (2.5-4.9); Potassium 4.5 mmol/L (3.5-5.1); Total Protein 5.8 gm/dl (6.0-8.3)
[2022-03-11 07:34] LABS: Basophils # (auto) 0.06 K/uL (0-0.2); Basophils % (auto) 0.8 %; Eosinophils # (auto) 0.12 K/uL (0-0.50); Eosinophils % (auto) 1.6 %; Immature Granulocytes # (auto) 0.01 K/uL (0.00-0.02); Immature Granulocytes % (auto) 0.1 %; Lymphocytes % (auto) 56.3 %; Monocytes # (auto) 0.59 K/uL (0.24-0.82); Monocytes % (auto) 7.7 %; Neutrophils # (auto) 2.56 K/uL (1.4-6.5); Neutrophils % (auto) 33.5 %
[2022-03-11] MEDS: SODIUM BICARBONATE 650 MG TAB PO SCH (08:17)
[2022-03-11] MEDS: NICOTINE 21 MG/24 HR TDSY TD SCH (08:17)
[2022-03-11] MEDS: hydrALAZINE HCL 25 MG TAB PO SCH (08:17)
[2022-03-11] MEDS: MAGNESIUM OXIDE 400 MG TAB PO SCH (08:17)
[2022-03-11] MEDS: ASPIRIN 81 MG ECTAB PO SCH (08:17)
[2022-03-11] MEDS: cephALEXin 500 MG CAP PO SCH (08:17)
[2022-03-11] MEDS: PANTOprazole 40 MG TAB PO SCH (08:17)
[2022-03-11] MEDS: MEMANTINE HCL 5 MG TAB PO SCH (08:17)
[2022-03-11] MEDS: INSULIN ASPART PER UNIT SC SCH (08:21)
[2022-03-11] MEDS: LANTUS PER UNIT CHARGE SQ SCH (08:23)
[2022-03-11] MEDS: CHOLESTYRAMINE LIGHT 4 GM PKT PO SCH (11:08)
== END 2022-03-11 12:15 | disposition home health service (06) | DRG 638 ==
LOC: ED 17:11 → SUATTDRO 20:18 → 3E 20:18